=== PATIENT | female | born 1945 | race Hispanic/Latino ===

== ENCOUNTER 2017-03-14 11:48 | Observation (INO) | payer MEDICARE ==
[~2017-03-14] VITALS: Ht 147.3 cm; Wt 64.8 kg
[~2017-03-14 11:48] MED LIST: CYCLOBENZAPRINE10 MG PO; GABAPENTIN300 MG PO; LORTAB 5-325 MG1 TAB PO; PREDNISONE5 MG PO
[2017-03-14 12:45] LABS: HEMOGLOBIN 13.9 g/dl (12.0-16.0); IMMATURE GRANULOCYTES 0.9 % (0.0-1.0); MEAN CORPUSCULAR HGB CONC 32.3 g/L CALC (32.0-36.0); NEUT# 6.54 thou/uL (2.00-7.15); RED BLOOD COUNT 4.48 mill/uL (4.20-5.60); RED CELL DISTRI WIDTH 14.5 % (11.5-15.5)
[2017-03-14 13:04] LABS: ALBUMIN 3.9 g/dL (3.2-5.0); ALKALINE PHOSPHATASE 103 u/l (38-126); ANION GAP 16 (6-22 (CALC)); BILIRUBIN, TOTAL 0.3 mg/dL (0.0-1.4); BUN 15 mg/dL (8-23); BUN/CREATININE RATIO 16 (12-20 (CALC)); CALCIUM 9.8 mg/dL (8.4-10.2); CARBON DIOXIDE 22 mmol/l (22-30); CHLORIDE 107 mmol/l (95-108); CREATININE 0.9 mg/dL (0.5-1.0); GFR > 60 ML/MIN (>=60 (CALC)); GFR FOR AFR.AMER. > 60 ML/MIN (>=60 (CALC)); GLUCOSE 234 mg/dL (82-115); SGOT/AST 28 u/l (9-36); SGPT/ALT 44 u/l (11-66); SODIUM 140 mmol/l (137-146); TOTAL PROTEIN 6.6 g/dL (6.3-8.2)
[2017-03-14 13:09] LABS: POTASSIUM 5.4 mmol/l (3.5-5.1)
[2017-03-14 13:16] LABS: MYOGLOBIN 37 ng/mL (0 - 62)
[2017-03-14 16:03] VITALS: BP 164/75
[2017-03-14 16:25] VITALS: BP 126/68
[2017-03-14] MEDS ORDERED: METFORMIN500 M1 PO (17:21)
[2017-03-14] MEDS ORDERED: COREG12.5 MG PO (17:22)
[2017-03-14] MEDS ORDERED: ASPIRIN 81 LOW81 MG PO (17:23)
[2017-03-14] MEDS ORDERED: SPIRONOLACT25 MG PO (17:24)
[2017-03-14] MEDS ORDERED: SINEQUAN10 MG PO (17:25)
[2017-03-14] MEDS ORDERED: CYCLOBENZAPR10 MG PO (17:26)
[2017-03-14] MEDS ORDERED: VALSARTAN160 MG PO (17:26)
[2017-03-14] MEDS ORDERED: ADVAIR DISKU IN (17:27)
[2017-03-14 19:00] VITALS: BP 118/55
[2017-03-14 23:43] LABS: URINE BILIRUBIN - DIPSTICK NEGATIVE (NEGATIVE); URINE BLOOD DIPSTICK NEGATIVE (NEGATIVE); URINE COLOR YELLOW; URINE GLUCOSE - DIPSTICK NEGATIVE (NEGATIVE); URINE KETONE NEGATIVE (NEGATIVE); URINE LEUK ESTERASE SMALL (Negative); URINE NITRITE - DIPSTICK NEGATIVE (Negative); URINE PROTEIN - DIPSTICK NEGATIVE (NEG-TRACE); URINE UROBILINOGEN - DIPSTICK 0.2 E.U./dL (0.2)
[2017-03-15] LABS: URINE CLARITY CLEAR
[2017-03-15 00:01] LABS: URINE BACTERIA FEW hpf; URINE SQUAMOUS EPITHELIAL CELL FEW EPI/hpf (0-FEW)
[2017-03-15 00:05] VITALS: BP 93/55
[2017-03-15 04:10] VITALS: BP 120/53
[2017-03-15 06:52] LABS: HEMATOCRIT 40.3 % (37.0-47.0); HEMOGLOBIN 12.8 g/dl (12.0-16.0); MEAN CELL VOLUME 98.1 fL CALC (80.0-100.0); MEAN CORPUSCULAR HGB 31.1 pG CALC (26.0-32.0); MEAN CORPUSCULAR HGB CONC 31.8 g/L CALC (32.0-36.0); NEUT# 5.97 thou/uL (2.00-7.15); RED BLOOD COUNT 4.11 mill/uL (4.20-5.60); RED CELL DISTRI WIDTH 14.4 % (11.5-15.5)
[2017-03-15 08:05] LABS: ANION GAP 14 (6-22 (CALC)); BUN 17 mg/dL (8-23); BUN/CREATININE RATIO 18 (12-20 (CALC)); CALCIUM 9.7 mg/dL (8.4-10.2); CALCULATED LDLCHOLESTEROL 129 mg/dL (62-129 (CALC)); CARBON DIOXIDE 27 mmol/l (22-30); CHLORIDE 106 mmol/l (95-108); CHOLESTEROL HDL RATIO 3.2 (<4.4 (CALC)); GFR 55 ML/MIN (>=60 (CALC)); GFR FOR AFR.AMER. > 60 ML/MIN (>=60 (CALC)); GLUCOSE 111 mg/dL (82-115); HDL CHOLESTEROL 78 mg/dL (>=40); MAGNESIUM 1.7 mg/dL (1.6-2.3); SODIUM 142 mmol/l (137-146); TOTAL CHOLESTEROL 249 mg/dl (0-199); TOTAL TRIGLYCERIDES 205 mg/dl (30-149); VLDL CHOLESTROL 41 mg/dl (1-41 (CALC))
[2017-03-15 08:06] LABS: POTASSIUM 5.3 mmol/l (3.5-5.1)
[2017-03-15 08:35] VITALS: BP 129/72
[2017-03-15 12:00] VITALS: BP 118/64
[2017-03-15] MEDS ORDERED: LORTAB 5/3255 MG PO (14:54)
== END 2017-03-15 15:38 | disposition home or self-care (01) ==
LOC: ED 11:48 → ED-I 14:40 → ED 15:17 → MS2 15:18
PROVIDERS: Emergency Medicine; Internal Medicine; Nurse Practitioner Family; ADMIT Internal Medicine; ATTEND Internal Medicine
DX: R07.9 Chest pain, unspecified (principal); I11.0 Hypertensive heart disease with heart failure; I50.32 Chronic diastolic (congestive) heart failure; E11.9 Type 2 diabetes mellitus without complications; M06.9 Rheumatoid arthritis, unspecified; E87.5 Hyperkalemia; M79.605 Pain in left leg; M79.604 Pain in right leg; S80.12XA Contusion of left lower leg, initial encounter; S80.11XA Contusion of right lower leg, initial encounter; S40.022A Contusion of left upper arm, initial encounter; S40.021A Contusion of right upper arm, initial encounter; W22.8XXA Striking against or struck by other objects, initial encounter; R60.9 Edema, unspecified; R06.02 Shortness of breath; Z79.899 Other long term (current) drug therapy

== ENCOUNTER 2018-09-16 14:48 | Observation (INO) | payer MEDICARE ==
[~2018-09-16] VITALS: Ht 147.3 cm; Wt 67.1 kg
[~2018-09-16 14:48] MED LIST changes: +ADVAIR DISKU IN; +ASPIRIN 81 LOW81 MG PO; +COREG25 MG PO; +CYCLOBENZAPR10 MG PO; +LORTAB 5/3255 MG PO; +METFORMIN500 M1 PO; +SINEQUAN10 MG PO; +SPIRONOLACT25 MG PO; +VALSARTAN160 MG PO
[2018-09-16 16:00] LABS: HEMATOCRIT 34.7 % (37.0-47.0); IMMATURE GRANULOCYTES 0.5 % (0.0-5.0); MEAN CORPUSCULAR HGB 23.3 pG CALC (26.0-32.0); MEAN CORPUSCULAR HGB CONC 28.5 g/L CALC (32.0-36.0); NEUT# 7.2 thou/uL (2.00-7.15); RED BLOOD COUNT 4.24 mill/uL (4.20-5.60); RED CELL DISTRI WIDTH 15.7 % (11.5-15.5)
[2018-09-16 16:04] LABS: HEMOGLOBIN 9.9 g/dl (12.0-16.0); MEAN CELL VOLUME 81.8 fL CALC (80.0-100.0)
[2018-09-16 16:17] LABS: URINE BILIRUBIN - DIPSTICK NEGATIVE (NEGATIVE); URINE BLOOD DIPSTICK NEGATIVE (NEGATIVE); URINE COLOR YELLOW; URINE GLUCOSE - DIPSTICK 500 mg/dL (NEGATIVE); URINE KETONE NEGATIVE (NEGATIVE); URINE LEUK ESTERASE TRACE (NEGATIVE); URINE NITRITE - DIPSTICK NEGATIVE (Negative); URINE PROTEIN - DIPSTICK NEGATIVE (NEG-TRACE); URINE SPECIFIC GRAVITY 1.025; URINE UROBILINOGEN - DIPSTICK 0.2 E.U./dL (0.2)
[2018-09-16 16:21] LABS: ALBUMIN 3.2 g/dL (3.2-5.0); ALKALINE PHOSPHATASE 99 u/l (38-126); ANION GAP 12 (6-22 (CALC)); BILIRUBIN, TOTAL 0.4 mg/dL (0.0-1.4); BUN 26 mg/dL (8-23); BUN/CREATININE RATIO 18 (12-20 (CALC)); CARBON DIOXIDE 25 mmol/l (22-30); CHLORIDE 108 mmol/l (95-108); CREATININE 1.5 mg/dL (0.5-1.0); GFR 34 ML/MIN (>=60 (CALC)); GFR FOR AFR.AMER. 41 ML/MIN (>=60 (CALC)); SGOT/AST 25 u/l (9-36); SODIUM 141 mmol/l (137-146); TOTAL PROTEIN 5.7 g/dL (6.3-8.2)
[2018-09-16 16:24] LABS: POTASSIUM 4.1 mmol/l (3.5-5.1)
[2018-09-16] MEDS ORDERED: GABAPENTIN300 M2 PO (16:25)
[2018-09-16] MEDS ORDERED: LASIX 20 MG TAB20 MG PO (16:25)
[2018-09-16] MEDS ORDERED: LIPITOR20 M1 PO (16:26)
[2018-09-16] MEDS ORDERED: MAXZIDE-2537.5 MG/TA PO (16:26)
[2018-09-16] MEDS ORDERED: XARELTO10 MG PO (16:27)
[2018-09-16] MEDS ORDERED: JANUVIA100 MG PO (16:27)
[2018-09-16] MEDS ORDERED: XELJANZ5 MG PO (16:27)
[2018-09-16] MEDS ORDERED: D3 HIGH POT1000 UNIT PO (16:28)
[2018-09-16] MEDS ORDERED: PREDNISONE2.5 MG PO (16:29)
[2018-09-16 18:31] VITALS: BP 166/70
[2018-09-16 19:30] VITALS: BP 142/72
[2018-09-17 03:49] VITALS: BP 120/59
[2018-09-17 05:28] LABS: HEMATOCRIT 31.8 % (37.0-47.0); HEMOGLOBIN 9.2 g/dl (12.0-16.0); IMMATURE GRANULOCYTES 0.5 % (0.0-5.0); MEAN CORPUSCULAR HGB 23.7 pG CALC (26.0-32.0); MEAN CORPUSCULAR HGB CONC 28.9 g/L CALC (32.0-36.0); NEUT# 7.25 thou/uL (2.00-7.15); RED BLOOD COUNT 3.88 mill/uL (4.20-5.60); RED CELL DISTRI WIDTH 15.7 % (11.5-15.5)
[2018-09-17 05:46] LABS: ALKALINE PHOSPHATASE 97 u/l (38-126); AMYLASE 56 u/l (30-110); ANION GAP 11 (6-22 (CALC)); BUN 21 mg/dL (8-23); BUN/CREATININE RATIO 20 (12-20 (CALC)); CARBON DIOXIDE 26 mmol/l (22-30); CHLORIDE 107 mmol/l (95-108); GFR 55 ML/MIN (>=60 (CALC)); GFR FOR AFR.AMER. > 60 ML/MIN (>=60 (CALC)); LIPASE 189 u/l (23-300); MAGNESIUM 1.9 mg/dL (1.6-2.3); POTASSIUM 3.8 mmol/l (3.5-5.1); SGOT/AST 18 u/l (9-36); SODIUM 139 mmol/l (137-146); TOTAL PROTEIN 5.3 g/dL (6.3-8.2)
[2018-09-17 06:04] LABS: BILIRUBIN, TOTAL 0.2 mg/dL (0.0-1.4)
[2018-09-17 07:55] VITALS: BP 122/40
[2018-09-17 16:00] VITALS: BP 139/69
[2018-09-17 19:43] VITALS: BP 158/74
[2018-09-18 04:26] VITALS: BP 127/59
[2018-09-18 05:16] LABS: HEMATOCRIT 34.2 % (37.0-47.0); HEMOGLOBIN 9.8 g/dl (12.0-16.0); IMMATURE GRANULOCYTES 0.4 % (0.0-5.0); MEAN CORPUSCULAR HGB 23.5 pG CALC (26.0-32.0); MEAN CORPUSCULAR HGB CONC 28.7 g/L CALC (32.0-36.0); NEUT# 8.26 thou/uL (2.00-7.15); RED BLOOD COUNT 4.17 mill/uL (4.20-5.60); RED CELL DISTRI WIDTH 15.9 % (11.5-15.5)
[2018-09-18 05:45] LABS: ALBUMIN 3.1 g/dL (3.2-5.0); BILIRUBIN, TOTAL 0.3 mg/dL (0.0-1.4); CREATININE 1.1 mg/dL (0.5-1.0); MAGNESIUM 1.9 mg/dL (1.6-2.3); POTASSIUM 4.1 mmol/l (3.5-5.1); TOTAL PROTEIN 5.4 g/dL (6.3-8.2)
[2018-09-18 08:00] VITALS: BP 133/60
[2018-09-18 08:03] VITALS: BP 133/60
[2018-09-18] MEDS ORDERED: BUMETANIDE1 MG PO (13:50)
== END 2018-09-18 14:29 | disposition home or self-care (01) ==
LOC: ED 14:48 → ED-I 17:19 → ED 17:48 → MS2 17:49
PROVIDERS: Emergency Medicine; ADMIT Internal Medicine Nephrology; ATTEND Internal Medicine Nephrology
DX: I11.0 Hypertensive heart disease with heart failure (principal); I50.32 Chronic diastolic (congestive) heart failure; E11.9 Type 2 diabetes mellitus without complications; M06.9 Rheumatoid arthritis, unspecified; E66.9 Obesity, unspecified; R58 Hemorrhage, not elsewhere classified; T45.515A Adverse effect of anticoagulants, initial encounter; E55.9 Vitamin D deficiency, unspecified; E78.5 Hyperlipidemia, unspecified; Z86.718 Personal history of other venous thrombosis and embolism; Z79.01 Long term (current) use of anticoagulants; Z98.84 Bariatric surgery status; M79.89 Other specified soft tissue disorders; M79.605 Pain in left leg; M79.604 Pain in right leg

== ENCOUNTER 2018-11-06 13:39 | Observation (INO) | payer MEDICARE ==
[~2018-11-06] VITALS: Ht 147.3 cm; Wt 65.8 kg
[~2018-11-06 13:39] MED LIST changes: +BUMETANIDE1 MG PO; +D3 HIGH POT1000 UNIT PO; +GABAPENTIN300 M2 PO; +JANUVIA100 MG PO; +LASIX 20 MG TAB20 MG PO; +LIPITOR20 M1 PO; +MAXZIDE-2537.5 MG/TA PO; +PREDNISONE2.5 MG PO; +XARELTO10 MG PO; +XELJANZ5 MG PO
--- NOTE | 2018-11-06 13:58 | NUR ---
WHEELCHAIR TO ER ROOM 9, TO BED
--- NOTE | 2018-11-06 14:30 | NUR ---
NITRO SL ON HOLD DUE TO LOW BLOOD PRESSURE. INFORMED.
--- NOTE | 2018-11-06 14:30 | NUR ---
PATIENT DENIES ANY CHEST PAIN.
[2018-11-06 14:37] LABS: HEMATOCRIT 33.4 % (37.0-47.0); HEMOGLOBIN 9.3 g/dl (12.0-16.0); IMMATURE GRANULOCYTES 0.4 % (0.0-5.0); MEAN CELL VOLUME 77.7 fL CALC (80.0-100.0); MEAN CORPUSCULAR HGB 21.6 pG CALC (26.0-32.0); MEAN CORPUSCULAR HGB CONC 27.8 g/L CALC (32.0-36.0); NEUT# 6.57 thou/uL (2.00-7.15); RED BLOOD COUNT 4.3 mill/uL (4.20-5.60); RED CELL DISTRI WIDTH 17.2 % (11.5-15.5)
[2018-11-06 14:51] LABS: ANION GAP 10 (6-22 (CALC)); BUN 16 mg/dL (8-23); BUN/CREATININE RATIO 13 (12-20 (CALC)); CARBON DIOXIDE 26 mmol/l (22-30); CHLORIDE 107 mmol/l (95-108); CREATININE 1.2 mg/dL (0.5-1.0); GFR 44 ML/MIN (>=60 (CALC)); GFR FOR AFR.AMER. 54 ML/MIN (>=60 (CALC)); POTASSIUM 4.3 mmol/l (3.5-5.1); SODIUM 138 mmol/l (137-146)
--- NOTE | 2018-11-06 15:09 | NUR ---
AT BEDSIDE TO DISCUSS RESULTS AND PLAN OF CARE.
--- NOTE | 2018-11-06 15:14 | NUR ---
SBAR PRINTED TO FLOOR
[2018-11-06] MEDS ORDERED: DIOVAN80 MG PO (15:22)
--- NOTE | 2018-11-06 15:25 | NUR ---
PATIENT MEDICATED WITH 40 MG OF LASIX IV. MED REC COMPLETED WITH PATIENT. INFORMED TO CALL FOR ASSISTANCE. DAUGHTER AT BEDSIDE, WILL CONTINUE TO MONITOR.
[2018-11-06 15:31] LABS: ALBUMIN 3.4 g/dL (3.2-5.0); BILIRUBIN, TOTAL 0.3 mg/dL (0.0-1.4); TOTAL PROTEIN 6.2 g/dL (6.3-8.2)
--- NOTE | 2018-11-06 16:10 | NUR ---
PATIENT AMBULATES TO AND FROM BATHROOM WITH STEADY GAIT. STANDBY ASSIST ONLY.
--- NOTE | 2018-11-06 16:50 | NUR ---
PATIENT TRANSPORTED TO [facility] VIA WHEELCHAIR WITH TELE IN PLACE. BEDSIDE REPORT GIVEN TO MAURY MCGEE. CARE RELINQUISHED.
--- NOTE | 2018-11-06 16:53 | NUR ---
PT ARRIVED TO MED/SURG ROOM 272 IN STABLE CONDITION ACCOMPANIED BY NIC GREEN;PT AMBULATED TO STANDING SCALE AND BEDSIDE WITH WEAK GAIT AND ONE PERSON ASSIST;WT AND VS OBTAINED BY AYAKA ALFREDO;REPORT THEN RECEIVED FROM NIC GREEN AT BEDSIDE;PT REPORTS INCREASED BLE EDEMA X2 DAYS SUPERVISOR STAGE CARPENTRY ASSOCIATED WITH SOB AND CHEST PRESSURE;PT REPORTS PAIN HAS DECREASED AFTER PAIN MEDICATION ADMINISTRATION IN THE ER, PAIN SCALE AND REPORTING EDUCATED;ASSESSMENT COMPLETED;RESPIRATIONS EVEN AND UNLABORED ON RA, CLEAR/DIMINISHED LUNG SOUNDS NOTED;ABDOMEN DISTENDED/SOFT ON PALPATION AND ACTIVE IN ALL 4 QUADRANTS, LAST BM 11/06/18;STRONG PEDAL PULSES WITH +2 EDEMA NOTED, ENCOURAGED ELEVATION OF BLE;SKIN INTACT;TELE MONITORING IN PLACE;#20G TO RIGHT FOREARM FLUSHED AND PATENT,SITE APPEARS HEALTHY;ACCUCHECK 178;PT DENIES ANY ADDITIONAL NEEDS AT THIS TIME AND IS ENCOURAGED TO CALL FOR ASSISTANCE IF NEEDED;FALL PRECAUTIONS IN PLACE WITH BED IN THE LOWEST POSITION AND CALL LIGHT IN REACH;WILL CONTINUE TO MONITOR
[2018-11-06 17:00] VITALS: BP 144/58
[2018-11-06 19:29] VITALS: BP 122/58
--- NOTE | 2018-11-06 22:26 | NUR ---
PT MEDICATED FOR PAIN /10 IN BLE. PT ASSESSED, LUNG SOUNDS ARE CLEAR THROUGHOUT, BUT PT REPORTS PAIN IN MID BACK UPON DEEP BREATHING AND FINDS IT VERY DIFFICULT TO DEEP BREATH. 1+EDEMA TO BLE, PT REPORTS PAIN IN LEGS AND FEET. ABD FIRM/DISTENDED TENDER TO PALPATE W/HYPOACTIVE BOWEL SOUNDS TO LLQ. PT LOCX3. POC DISCUSSED/PT EXPRESSES UNDERSTANDING. PT ENCOURAGED TO CALL IF SHE NEEDS TO AMBULATE TO RESTROOM OR HAS ANY OTHER NEEDS ARISE.
[2018-11-06 23:15] VITALS: BP 115/62
--- NOTE | 2018-11-06 23:25 | NUR ---
PT REPORTS PAIN IS IMPROVING, BUT THAT SHE FEELS LIKE SHE HAS PHLEGM IN HER THROAT AND CANNOT CLEAR IT. SHE REPORTS THAT SHE HAS HAD THIS FEELING FOR WEEKS NOW AND IT IS JUST WORSENING. SHE STATES THAT SHE HAS TO PROP UP USING PILLOWS WHEN SHE SLEEPS. WILL CONTINUE TO MONITOR.
[2018-11-07 02:10] LABS: HEMATOCRIT 32.4 % (37.0-47.0); MEAN CELL VOLUME 77.9 fL CALC (80.0-100.0); MEAN CORPUSCULAR HGB 21.6 pG CALC (26.0-32.0); MEAN CORPUSCULAR HGB CONC 27.8 g/L CALC (32.0-36.0); RED BLOOD COUNT 4.16 mill/uL (4.20-5.60); RED CELL DISTRI WIDTH 17.2 % (11.5-15.5)
[2018-11-07 02:31] LABS: CHOLESTEROL HDL RATIO 2.6 (<4.4 (CALC)); CREATININE 1.3 mg/dL (0.5-1.0); POTASSIUM 4.9 mmol/l (3.5-5.1)
[2018-11-07 04:00] VITALS: BP 132/62
--- NOTE | 2018-11-07 05:24 | NUR ---
PT SLEEPING, NO S/O DISTRESS, CALL LIGHT AT BEDSIDE. AWOKE TO MY VOICE/DENIED ANY NEEDS.
[2018-11-07 07:50] VITALS: BP 149/57
--- NOTE | 2018-11-07 07:50 | NUR ---
ASSESSMENT IS COMPLETED: IV SITE IS FREE FROM REDNESS OR EDEMA. HR IS REG,PULSES ARE STRONG X4, ABD IS SOFT WITH ACTIVE BS. BREATH SOUNDS ARE CLEAR, BILATERALLY. +2 PITTING EDEMA NOTED ON FEET AND PAINFUL TO WALK, C/O LOWER BACK HURTING. CONTINUE TO OSBERVE AND MONITOR
[2018-11-07 08:19] LABS: URINE BILIRUBIN - DIPSTICK NEGATIVE (NEGATIVE); URINE BLOOD DIPSTICK NEGATIVE (NEGATIVE); URINE COLOR YELLOW; URINE GLUCOSE - DIPSTICK NEGATIVE (NEGATIVE); URINE KETONE NEGATIVE (NEGATIVE); URINE LEUK ESTERASE TRACE (Negative); URINE NITRITE - DIPSTICK NEGATIVE (Negative); URINE PROTEIN - DIPSTICK NEGATIVE (NEG-TRACE); URINE UROBILINOGEN - DIPSTICK 0.2 E.U./dL (0.2)
[2018-11-07 08:22] LABS: URINE CLARITY CLEAR
[2018-11-07 10:35] VITALS: BP 117/55
--- NOTE | 2018-11-07 10:44 | NUR ---
PT INQUIRING ABOUT PAIN MEDICATION TOO SOON.
--- NOTE | 2018-11-07 12:00 | NUR ---
PT IS RELAXING IN BED WITH NO DISTRESS NOTED. IV SITE IS FREE FROM REDNESS OR EDMEA.
[2018-11-07 12:05] LABS: C-REACTIVE PROTEIN 0.9 mg/dL (0-0.9)
[2018-11-07 14:46] VITALS: BP 130/65
--- NOTE | 2018-11-07 16:00 | NUR ---
PT HAS BEEN VISITING WITH FAMILY.NO DISTRESS NOTED. IV SITE IS FREE FROM REDNESS OR EDEMA.
--- NOTE | 2018-11-07 19:00 | NUR ---
REPORT RECEIVED FROM MAURY ROWLEY. PT RESTING IN BED. NO S/S OF DISTRESS AT THIS TIME. CALL SCOTT WITHIN REACH, WILL CONTINUE TO MONITOR.
[2018-11-07 20:39] VITALS: BP 120/76
--- NOTE | 2018-11-07 21:30 | NUR ---
PT RESTING IN BED. ALERT AND ORIENTED. RESPIRATIONS EVEN AND UNLABORED ON RA. LUNGS SOUND CLEAR/DIMINISHED. PEDAL PULSES ARE WEAK. 1+ EDEMA NOTED BILATERALLY TO THE FEET. PT REPORTS PAIN OF A 8/10 HER FEET, PT TO BE MEDICATED PER EMAR ORDERS. CALL SCOTT WITHIN REACH, WILL CONTINUE TO MONITOR.
[2018-11-08 00:23] VITALS: BP 127/71
--- NOTE | 2018-11-08 00:29 | NUR ---
PT RESTING IN BED. TELE IN PLACE. NO S/S OF DISTRESS AT THIS TIME. SAFETY PRECAUTIONS IN PLACE. WILL CONTINUE TO MONITOR.
--- NOTE | 2018-11-08 04:15 | NUR ---
PT RESTING IN BED. TELE IN PLACE. RESPIRATIONS EVEN AND UNLABORED ON RA. SAFETY PRECAUTIONS IN PLACE. WILL CONTINUE TO MONITOR.
[2018-11-08 04:24] VITALS: BP 140/56
--- NOTE | 2018-11-08 06:55 | NUR ---
PT REPORT RECIEVED FROM NIC FITZPATRICK. PT WATCHING TELEVISION. NO S/S OF DISTRESS. CALL LIGHT IN REACH. WILL CONTINUE TO MONITOR.
[2018-11-08 07:38] VITALS: BP 120/79
--- NOTE | 2018-11-08 07:38 | NUR ---
PT A/O X3. RESP EVEN AND UNLABORED. LUNG SOUNDS CLEAR. TELE IN PLACE. BOWEL SOUNDS ACTIVE. STRONG RADIAL/PEDAL PUKSES. #20 RFA IV REMOVED DUE TO LEAKING. #22 RFA IV STARTED BY COMPETENCY EVALUATED NURSE AIDE. FLUSHED AND PATENT; SITE HAPPEARS HEALTHY. SKIN INTACT. PT C/O ACHING BACK PAIN; 7 OUT OF 10 ON PAIN SCALE. MEDICATED W/ ONE LORTAB 5/325 PO. REPOSITIONED FOR COMFORT. PT DENIES ANY FURTHER NEEDS. POC DISCUSSED. SAFETY PRECAUTIONS IN PLACE. CALL LIGHT IN REACH. WILL CONTINUE TO MONITOR.
[2018-11-08 11:10] VITALS: BP 100/50
[2018-11-08] MEDS ORDERED: JANUVIA50 MG PO (11:16)
[2018-11-08] MEDS ORDERED: PROTONIX40 M2 PO (11:33)
--- NOTE | 2018-11-08 11:59 | NUR ---
PT WATCHING TELEVISION; DAUGHTER AT BEDSIDE. CALL LIGHT IN REACH. WILL CONTINUE TO MONITOR.
--- NOTE | 2018-11-08 13:20 | NUR ---
D/C INSTRUCTIONS DISCUSSED W/ PT. PT STATES UNDERSTANG. IV REMOVED; CATHETER INTACT. PT GETTING DRESSED. DAUGHTER AT BEDSIDE.
--- NOTE | 2018-11-08 13:28 | NUR ---
Discharge instructions given. Patient verbalizes understanding of same. Discharged in stable condition via Wheelchair to Home with family. All belongings sent with pt.
== END 2018-11-08 13:30 | disposition home or self-care (01) ==
LOC: ED 13:39 → ED-I 14:14 → ED 15:42 → MS2 15:43
PROVIDERS: Family Medicine; ADMIT Internal Medicine; ATTEND Internal Medicine
DX: I11.0 Hypertensive heart disease with heart failure (principal); I50.33 Acute on chronic diastolic (congestive) heart failure; D50.9 Iron deficiency anemia, unspecified; E11.9 Type 2 diabetes mellitus without complications; K59.09 Other constipation; E78.5 Hyperlipidemia, unspecified; M06.9 Rheumatoid arthritis, unspecified; Z79.84 Long term (current) use of oral hypoglycemic drugs; Z86.718 Personal history of other venous thrombosis and embolism; Z79.01 Long term (current) use of anticoagulants; Z98.84 Bariatric surgery status
CPT/HCPCS: J1756

== ENCOUNTER 2018-12-29 11:18 | Observation (INO) | payer MEDICARE ==
[~2018-12-29] VITALS: Ht 147.3 cm; Wt 65.0 kg
[~2018-12-29 11:18] MED LIST changes: +DIOVAN80 MG PO; +JANUVIA50 MG PO; +Levaquin PO; +PROTONIX40 M2 PO
--- NOTE | 2018-12-29 11:37 | NUR ---
PATIENT TO ROOM VIA WHEELCHAIR AND PHYSICIAN NOTIFIED OF PATIENT STATUS
--- NOTE | 2018-12-29 11:40 | NUR ---
PT WITH COMPLAINS OF GENERALIZED WEAKNESS BILATE LOWER EXTREMITY SWELLING. WAS ADMITTED HERE A WEEK AGO. DAUGHTER AT BEDSIDE
[2018-12-29 12:12] LABS: CREATININE 1.3 mg/dL (0.5-1.0); POTASSIUM 4.4 mmol/l (3.5-5.1)
--- NOTE | 2018-12-29 12:12 | NUR ---
PT MEDICATED LIGHTS DIMMED CALL LIGHT IN REACH
[2018-12-29 12:23] LABS: HEMATOCRIT 43.5 % (37.0-47.0); HEMOGLOBIN 13.1 g/dl (12.0-16.0); IMMATURE GRANULOCYTES 0.5 % (0.0-5.0); MEAN CORPUSCULAR HGB 26.2 pG CALC (26.0-32.0); MEAN CORPUSCULAR HGB CONC 30.1 g/L CALC (32.0-36.0); NEUT# 7.15 thou/uL (2.00-7.15); RED CELL DISTRI WIDTH 23.3 % (11.5-15.5)
--- NOTE | 2018-12-29 12:25 | NUR ---
REPORT RECEIVED FROM NIC HILLIARD.
--- NOTE | 2018-12-29 13:24 | NUR ---
PATIENT RESTING ON STRETCHER, NO SIGNS OF DISTRESS NOTED. VSS. CALL LIGHT WITHIN REACH. WAITING ON RESULTS. DAUGHTER AT BEDSIDE. WILL CONTINUE TO MONITOR.
--- NOTE | 2018-12-29 14:38 | NUR ---
TWO SKIN TEARS NOTED TO RIGHT KNEE 2 CM AND 3 CM. 1 CM SLIN TEAR TO RIGHT ELBOW. CLEANED WITH SALINE AND DRESSING APPLIED. TOLERATED WELL.
--- NOTE | 2018-12-29 14:43 | NUR ---
ATTEMPT MADE TO CALL REPORT, SPOKE TO YAMILET. NURSE PATEL WILL CALL BACK.
--- NOTE | 2018-12-29 15:10 | NUR ---
REPORT GIVEN TO NIC PATEL.
--- NOTE | 2018-12-29 15:15 | NUR ---
PATIENT TRANSPORTED TO [facility] VIA STRETCHER WITH TELE IN PLACE. NIC PATEL AT BEDSIDE. CARE RELINQUISHED.
[2018-12-29 15:17] VITALS: BP 131/68
[2018-12-29] MEDS ORDERED: LORTAB 5/3255 MG PO (16:27)
[2018-12-29] MEDS ORDERED: JANUVIA100 MG PO (17:12)
[2018-12-29] MEDS ORDERED: DIOVAN80 MG PO (17:12)
[2018-12-29 18:46] VITALS: BP 135/59
--- NOTE | 2018-12-29 19:00 | NUR ---
RECEIVED REPORT FROM NURSE PATEL, PATIENT RESTING IN BED, WATCHING TV, CALL LIGHT WITHIN REACH.
--- NOTE | 2018-12-29 20:34 | NUR ---
CALLED DR. CASTILLO ABOUT PATIENT REQUEST TO RESTART DOXEPIN WITH ORDERS MADE.
--- NOTE | 2018-12-29 21:00 | NUR ---
PATIENT ALERT AND ORIENTED WITH SALINE LOCK ON LAC G20 PATENT FLUSHES WELL REMAINS ON TELE SR 64, C/O GENERALIZED BODY PAIN PRN PAIN MEDICATION GIVEN WAS EFFECTIVE, BS 94, SNACK GIVEN, NOTED TO HAVE SKIN TEAR ON RT LEG, CLEANED AND APPLIED DRY DRESSING, REINFORCED ON THE NEED TO ASK FOR ASSISTANCE DURING AMBULATIONS.CALL LIGHT WITHIN REACH.
[2018-12-29 23:46] VITALS: BP 154/65
--- NOTE | 2018-12-29 23:47 | NUR ---
PATIENT C/O OF HEADACHE PS 09/24, REQUESTED TYLENOL.
--- NOTE | 2018-12-30 03:59 | NUR ---
PATIENT APPEARS TO BE RESTING WITH EYES CLOSED WITH EVEN UNLABORED BREATHING NO DISCOMFORTS NOTED AT THIS TIME.
[2018-12-30 04:14] VITALS: BP 128/56
[2018-12-30 08:00] VITALS: BP 121/65
--- NOTE | 2018-12-30 08:00 | NUR ---
PT AWAKE, ALERT, ORIENTED X 3. PT IS SORE FROM HAVING FALLEN YESTERDAY, PROVIDED MEDS ORDERED FOR PAIN RELIEF. NO CHANGE IN VISION, NO SIGNIFICANT HEADACHE. LUNGS CLEAR, RA.
--- NOTE | 2018-12-30 10:32 | NUR ---
PATIENT REPORTED PAIN OF (PS 8/10), BUT COOPERATIVE AND WILLING TO DO THERAPY. PERFORMED GAIT TRAINING USING 2WW, 30 FEET, CGA FOR SAFETY. PATIENT PRESENTED ANTALGIC GAIT, DECREAED GAT SPEED, AND DECREASED STEP LENGTH AND STRIDE. PATIENT PERFORMED BED MOBILITY (SUPINE <> SIT), SUPERVISION, ABLE TO DEMONSTRATE GOOD SEQUENCING AND SAEFTY AWARENESS.
[2018-12-30 10:35] LABS: HEMATOCRIT 38.9 % (37.0-47.0); HEMOGLOBIN 11.8 g/dl (12.0-16.0); IMMATURE GRANULOCYTES 0.3 % (0.0-5.0); MEAN CELL VOLUME 87.2 fL CALC (80.0-100.0); MEAN CORPUSCULAR HGB 26.5 pG CALC (26.0-32.0); MEAN CORPUSCULAR HGB CONC 30.3 g/L CALC (32.0-36.0); NEUT# 4.69 thou/uL (2.00-7.15); RED BLOOD COUNT 4.46 mill/uL (4.20-5.60); RED CELL DISTRI WIDTH 22.9 % (11.5-15.5)
[2018-12-30 10:51] LABS: CREATININE 1.1 mg/dL (0.5-1.0); MAGNESIUM 1.8 mg/dL (1.6-2.3)
[2018-12-30 11:27] VITALS: BP 81/43
--- NOTE | 2018-12-30 12:00 | NUR ---
PT HAS BEEN AMBULATED IN HALLWAY BY PHYSICAL THERAPY. PT CONTINUES WITH GENERALIZED PAIN, MEDICATED FOR SAME. DAUGHTER AT BEDSIDE.
[2018-12-30] MEDS ORDERED: LORTAB 5/3255 MG PO (13:27)
[2018-12-30 13:38] VITALS: BP 148/79
--- NOTE | 2018-12-30 14:10 | NUR ---
PT HAS BEEN DISCHARGED TO HOME. PT AND DAUGHTER VERBALIZE UNDERSTANDING OF DC INSTRUCTIONS, PT TAKEN TO LOBBY VIA WHEELCHAIR.
== END 2018-12-30 14:06 ==
LOC: ED 11:18 → ED-I 13:40 → ED 13:58 → MS2 13:59
PROVIDERS: Family Medicine; Nurse Practitioner Family; ADMIT Internal Medicine; ATTEND Internal Medicine
DX: S09.90XA Unspecified injury of head, initial encounter (principal); S80.12XA Contusion of left lower leg, initial encounter; S81.011A Laceration without foreign body, right knee, initial encounter; S51.011A Laceration without foreign body of right elbow, initial encounter; I11.0 Hypertensive heart disease with heart failure; I50.32 Chronic diastolic (congestive) heart failure; E11.9 Type 2 diabetes mellitus without complications; M06.9 Rheumatoid arthritis, unspecified; W19.XXXA Unspecified fall, initial encounter; Y92.009 Unspecified place in unspecified non-institutional (private) residence as the place of occurrence of the external cause; Z91.81 History of falling; Z79.84 Long term (current) use of oral hypoglycemic drugs; Z86.718 Personal history of other venous thrombosis and embolism; Z79.01 Long term (current) use of anticoagulants

== ENCOUNTER 2019-02-07 14:13 | Emergency (ER) | payer MEDICARE ==
[~2019-02-07] VITALS: Ht 147.3 cm; Wt 60.0 kg
[2019-02-07 15:04] LABS: HEMATOCRIT 42.6 % (37.0-47.0); HEMOGLOBIN 13.4 g/dl (12.0-16.0); IMMATURE GRANULOCYTES 0.4 % (0.0-5.0); MEAN CELL VOLUME 90.1 fL CALC (80.0-100.0); MEAN CORPUSCULAR HGB 28.3 pG CALC (26.0-32.0); MEAN CORPUSCULAR HGB CONC 31.5 g/L CALC (32.0-36.0); NEUT# 5.53 thou/uL (2.00-7.15); RED BLOOD COUNT 4.73 mill/uL (4.20-5.60); RED CELL DISTRI WIDTH 16.8 % (11.5-15.5)
[2019-02-07 15:36] LABS: ALBUMIN 3.7 g/dL (3.2-5.0); ALKALINE PHOSPHATASE 122 u/l (38-126); ANION GAP 14 (6-22 (CALC)); BILIRUBIN, TOTAL 0.7 mg/dL (0.0-1.4); BUN 13 mg/dL (8-23); BUN/CREATININE RATIO 13 (12-20 (CALC)); CARBON DIOXIDE 20 mmol/l (22-30); CHLORIDE 107 mmol/l (95-108); GFR 55 ML/MIN (>=60 (CALC)); GFR FOR AFR.AMER. > 60 ML/MIN (>=60 (CALC)); SGOT/AST 40 u/l (9-36); SODIUM 136 mmol/l (137-146); TOTAL PROTEIN 6.8 g/dL (6.3-8.2)
[2019-02-07 15:41] LABS: URINE BILIRUBIN - DIPSTICK NEGATIVE (NEGATIVE); URINE BLOOD DIPSTICK NEGATIVE (NEGATIVE); URINE COLOR YELLOW; URINE GLUCOSE - DIPSTICK NEGATIVE (NEGATIVE); URINE KETONE NEGATIVE (NEGATIVE); URINE LEUK ESTERASE NEGATIVE (NEGATIVE); URINE NITRITE - DIPSTICK NEGATIVE (Negative); URINE PROTEIN - DIPSTICK NEGATIVE (NEG-TRACE); URINE SPECIFIC GRAVITY 1.025; URINE UROBILINOGEN - DIPSTICK 0.2 E.U./dL (0.2)
[2019-02-07] MEDS ORDERED: LEVAQUIN500 MG PO (16:10)
[2019-02-07 16:40] VITALS: BP 153/80
== END 2019-02-07 17:01 | disposition home or self-care (01) ==
LOC: ED 14:13
DX: J40 Bronchitis, not specified as acute or chronic (principal); R19.7 Diarrhea, unspecified; J45.909 Unspecified asthma, uncomplicated

== ENCOUNTER 2019-02-18 15:02 | Emergency (ER) | payer MEDICARE ==
[~2019-02-18] VITALS: Ht 147.3 cm; Wt 64.0 kg
[~2019-02-18 15:02] MED LIST changes: +LEVAQUIN500 MG PO
[2019-02-18 17:33] LABS: HEMATOCRIT 37.6 % (37.0-47.0); HEMOGLOBIN 11.9 g/dl (12.0-16.0); MEAN CELL VOLUME 90.4 fL CALC (80.0-100.0); MEAN CORPUSCULAR HGB 28.6 pG CALC (26.0-32.0); MEAN CORPUSCULAR HGB CONC 31.6 g/L CALC (32.0-36.0); NEUT# 5.55 thou/uL (2.00-7.15); RED BLOOD COUNT 4.16 mill/uL (4.20-5.60)
[2019-02-18 17:51] LABS: ALBUMIN 3.2 g/dL (3.2-5.0); CREATININE 1.2 mg/dL (0.5-1.0); POTASSIUM 4.7 mmol/l (3.5-5.1); TOTAL PROTEIN 5.8 g/dL (6.3-8.2)
[2019-02-18 17:54] LABS: BILIRUBIN, TOTAL 0.3 mg/dL (0.0-1.4)
[2019-02-18 18:30] VITALS: BP 158/58
[2019-02-18] MEDS ORDERED: ULTRAM50 M1 PO (18:34)
[2019-02-18] MEDS ORDERED: CEPHALEXIN500 MG PO (18:34)
== END 2019-02-18 18:42 | disposition home or self-care (01) ==
LOC: ED 15:02
PROVIDERS: Emergency Medicine
DX: M79.89 Other specified soft tissue disorders (principal); I11.0 Hypertensive heart disease with heart failure; I50.9 Heart failure, unspecified; E11.9 Type 2 diabetes mellitus without complications; Z95.820 Peripheral vascular angioplasty status with implants and grafts

== ENCOUNTER 2019-11-27 16:47 | Inpatient (IN) | payer MEDICARE ==
[~2019-11-27] VITALS: Ht 147.3 cm; Wt 63.8 kg
[~2019-11-27 16:47] MED LIST changes: +CEPHALEXIN500 MG PO; +ULTRAM50 M1 PO
[2019-11-27 17:57] LABS: HEMATOCRIT 39.9 % (37.0-47.0); HEMOGLOBIN 11.5 g/dl (12.0-16.0); IMMATURE GRANULOCYTES 0.4 % (0.0-5.0); MEAN CELL VOLUME 95.7 fL CALC (80.0-100.0); MEAN CORPUSCULAR HGB 27.6 pG CALC (26.0-32.0); MEAN CORPUSCULAR HGB CONC 28.8 g/dL CAL (32.0-36.0); NEUT# 3.56 thou/uL (2.00-7.15); RED BLOOD COUNT 4.17 mill/uL (4.20-5.60); RED CELL DISTRI WIDTH 13.2 % (11.5-15.5)
[2019-11-27 18:25] LABS: ALBUMIN 3.7 g/dL (3.2-5.0); ALKALINE PHOSPHATASE 96 u/l (38-126); ANION GAP 13 (6-22 (CALC)); BILIRUBIN, TOTAL 0.3 mg/dL (0.0-1.4); BUN 22 mg/dL (8-23); BUN/CREATININE RATIO 18 (12-20 (CALC)); CARBON DIOXIDE 21 mmol/l (22-30); CHLORIDE 109 mmol/l (95-108); CREATININE 1.2 mg/dL (0.5-1.0); GFR 44 ML/MIN (>=60 (CALC)); GFR FOR AFR.AMER. 53 ML/MIN (>=60 (CALC)); POTASSIUM 5.1 mmol/l (3.5-5.1); SODIUM 137 mmol/l (137-146); TOTAL PROTEIN 6.2 g/dL (6.3-8.2)
[2019-11-27 18:37] LABS: SGOT/AST 37 u/l (9-36)
[2019-11-27] MEDS ORDERED: BENICAR5 MG PO (19:24)
[2019-11-27] MEDS ORDERED: METFORMIN500 M2 PO (19:25)
[2019-11-27] MEDS ORDERED: GABAPENTIN100 MG PO (19:26)
[2019-11-27 20:22] VITALS: BP 107/57
[2019-11-28] VITALS (101 sets, daily range): BP systolic 64–159; BP diastolic 35–94
[2019-11-28 08:05] LABS: CREATININE 1.1 mg/dL (0.5-1.0); POTASSIUM 5.6 mmol/l (3.5-5.1)
[2019-11-29] VITALS (46 sets, daily range): BP systolic 76–160; BP diastolic 41–100
[2019-11-29 09:15] LABS: CREATININE 1.4 mg/dL (0.5-1.0)
[2019-11-29 09:18] LABS: POTASSIUM 5.4 mmol/l (3.5-5.1)
[2019-11-30] VITALS (28 sets, daily range): BP systolic 100–156; BP diastolic 45–92
[2019-11-30 04:41] LABS: HEMOGLOBIN 10.1 g/dl (12.0-16.0); MEAN CELL VOLUME 91.5 fL CALC (80.0-100.0); MEAN CORPUSCULAR HGB 27.7 pG CALC (26.0-32.0); MEAN CORPUSCULAR HGB CONC 30.2 g/dL CAL (32.0-36.0); RED BLOOD COUNT 3.65 mill/uL (4.20-5.60); RED CELL DISTRI WIDTH 12.9 % (11.5-15.5)
[2019-11-30 04:43] LABS: HEMATOCRIT 33.4 % (37.0-47.0)
[2019-11-30 05:13] LABS: BUN 22 mg/dL (8-23); BUN/CREATININE RATIO 22 (12-20 (CALC)); CARBON DIOXIDE 24 mmol/l (22-30); CHLORIDE 106 mmol/l (95-108); GFR 55 ML/MIN (>=60 (CALC)); GFR FOR AFR.AMER. > 60 ML/MIN (>=60 (CALC)); SODIUM 133 mmol/l (137-146)
[2019-11-30 05:36] LABS: ANION GAP 8 (6-22 (CALC))
[2019-11-30 05:37] LABS: POTASSIUM 5.4 mmol/l (3.5-5.1)
[2019-12-01] VITALS: BP 113/55
[2019-12-01 03:50] VITALS: BP 119/64
[2019-12-01 08:00] VITALS: BP 124/38
[2019-12-01 09:11] LABS: HEMATOCRIT 29.7 % (37.0-47.0); MEAN CELL VOLUME 91.4 fL CALC (80.0-100.0); MEAN CORPUSCULAR HGB 27.7 pG CALC (26.0-32.0); MEAN CORPUSCULAR HGB CONC 30.3 g/dL CAL (32.0-36.0); RED BLOOD COUNT 3.25 mill/uL (4.20-5.60); RED CELL DISTRI WIDTH 13.1 % (11.5-15.5)
[2019-12-01 09:38] LABS: CREATININE 1.2 mg/dL (0.5-1.0); POTASSIUM 3.7 mmol/l (3.5-5.1)
[2019-12-01 11:00] VITALS: BP 97/53
[2019-12-01 15:00] VITALS: BP 128/64
[2019-12-01 18:56] VITALS: BP 134/77
[2019-12-02 00:22] VITALS: BP 132/58
[2019-12-02 03:18] LABS: HEMATOCRIT 31.6 % (37.0-47.0); HEMOGLOBIN 9.5 g/dl (12.0-16.0); IMMATURE GRANULOCYTES 0.4 % (0.0-5.0); MEAN CELL VOLUME 91.6 fL CALC (80.0-100.0); MEAN CORPUSCULAR HGB 27.5 pG CALC (26.0-32.0); MEAN CORPUSCULAR HGB CONC 30.1 g/dL CAL (32.0-36.0); NEUT# 4.36 thou/uL (2.00-7.15); RED BLOOD COUNT 3.45 mill/uL (4.20-5.60); RED CELL DISTRI WIDTH 13.1 % (11.5-15.5)
[2019-12-02 03:37] LABS: BILIRUBIN, TOTAL 0.2 mg/dL (0.0-1.4); CREATININE 1.1 mg/dL (0.5-1.0)
[2019-12-02 03:38] LABS: ALBUMIN 2.8 g/dL (3.2-5.0); TOTAL PROTEIN 4.9 g/dL (6.3-8.2)
[2019-12-02 05:00] VITALS: BP 151/70
[2019-12-02 09:01] VITALS: BP 128/69
[2019-12-02 11:05] VITALS: BP 123/61
[2019-12-02 15:47] VITALS: BP 148/75
[2019-12-02 19:00] VITALS: BP 135/33
[2019-12-03] VITALS: BP 130/43
[2019-12-03 04:00] VITALS: BP 144/67
[2019-12-03 05:14] LABS: HEMATOCRIT 31.3 % (37.0-47.0); HEMOGLOBIN 9.5 g/dl (12.0-16.0); IMMATURE GRANULOCYTES 0.6 % (0.0-5.0); MEAN CELL VOLUME 93.2 fL CALC (80.0-100.0); MEAN CORPUSCULAR HGB 28.3 pG CALC (26.0-32.0); MEAN CORPUSCULAR HGB CONC 30.4 g/dL CAL (32.0-36.0); NEUT# 5.21 thou/uL (2.00-7.15); RED BLOOD COUNT 3.36 mill/uL (4.20-5.60); RED CELL DISTRI WIDTH 13.2 % (11.5-15.5)
[2019-12-03 05:30] LABS: ALBUMIN 2.7 g/dL (3.2-5.0); BILIRUBIN, TOTAL 0.2 mg/dL (0.0-1.4); C-REACTIVE PROTEIN 0.7 mg/dL (0-0.9); CREATININE 1.1 mg/dL (0.5-1.0); TOTAL PROTEIN 4.8 g/dL (6.3-8.2)
[2019-12-03 08:04] VITALS: BP 107/48
[2019-12-03 11:10] VITALS: BP 122/67
[2019-12-03 15:20] VITALS: BP 129/75
[2019-12-03 19:00] VITALS: BP 119/62
[2019-12-04] VITALS: BP 126/61
[2019-12-04 04:00] VITALS: BP 133/60
[2019-12-04 05:32] LABS: HEMATOCRIT 31.8 % (37.0-47.0); HEMOGLOBIN 9.3 g/dl (12.0-16.0); IMMATURE GRANULOCYTES 1.2 % (0.0-5.0); MEAN CELL VOLUME 93.3 fL CALC (80.0-100.0); MEAN CORPUSCULAR HGB 27.3 pG CALC (26.0-32.0); MEAN CORPUSCULAR HGB CONC 29.2 g/dL CAL (32.0-36.0); NEUT# 5.79 thou/uL (2.00-7.15); RED BLOOD COUNT 3.41 mill/uL (4.20-5.60)
[2019-12-04 06:21] LABS: ALBUMIN 2.7 g/dL (3.2-5.0); BILIRUBIN, TOTAL 0.2 mg/dL (0.0-1.4); CREATININE 1.2 mg/dL (0.5-1.0); POTASSIUM 4.3 mmol/l (3.5-5.1); TOTAL PROTEIN 4.8 g/dL (6.3-8.2)
[2019-12-04 08:00] VITALS: BP 108/45; BP 122/72
[2019-12-04 12:00] VITALS: BP 103/42
[2019-12-04 16:00] VITALS: BP 129/72
[2019-12-04 18:45] VITALS: BP 132/79
[2019-12-05] VITALS: BP 132/76
[2019-12-05 03:30] VITALS: BP 150/72
[2019-12-05 07:40] VITALS: BP 140/56
[2019-12-05 09:58] LABS: HEMATOCRIT 33.1 % (37.0-47.0); HEMOGLOBIN 9.7 g/dl (12.0-16.0); IMMATURE GRANULOCYTES 1.2 % (0.0-5.0); MEAN CELL VOLUME 95.1 fL CALC (80.0-100.0); MEAN CORPUSCULAR HGB 27.9 pG CALC (26.0-32.0); MEAN CORPUSCULAR HGB CONC 29.3 g/dL CAL (32.0-36.0); NEUT# 7.61 thou/uL (2.00-7.15); RED BLOOD COUNT 3.48 mill/uL (4.20-5.60); RED CELL DISTRI WIDTH 13.2 % (11.5-15.5)
[2019-12-05 10:20] LABS: BILIRUBIN, TOTAL 0.2 mg/dL (0.0-1.4); CREATININE 1.1 mg/dL (0.5-1.0); POTASSIUM 4.6 mmol/l (3.5-5.1); TOTAL PROTEIN 5.3 g/dL (6.3-8.2)
[2019-12-05 10:58] VITALS: BP 113/52
[2019-12-05 14:50] VITALS: BP 120/67
[2019-12-05 19:02] VITALS: BP 129/74
[2019-12-06 00:12] VITALS: BP 137/65
[2019-12-06 03:44] VITALS: BP 129/50
[2019-12-06 04:59] LABS: HEMATOCRIT 32.9 % (37.0-47.0); HEMOGLOBIN 9.6 g/dl (12.0-16.0); MEAN CELL VOLUME 94.3 fL CALC (80.0-100.0); MEAN CORPUSCULAR HGB 27.5 pG CALC (26.0-32.0); MEAN CORPUSCULAR HGB CONC 29.2 g/dL CAL (32.0-36.0); RED BLOOD COUNT 3.49 mill/uL (4.20-5.60); RED CELL DISTRI WIDTH 13.3 % (11.5-15.5)
[2019-12-06 05:02] LABS: CREATININE 1.3 mg/dL (0.5-1.0); MAGNESIUM 2.5 mg/dL (1.6-2.3); POTASSIUM 4.4 mmol/l (3.5-5.1)
[2019-12-06 07:32] VITALS: BP 127/58
[2019-12-06 10:58] VITALS: BP 104/51
[2019-12-06 15:10] VITALS: BP 117/61
[2019-12-06 19:25] VITALS: BP 114/57
[2019-12-07 00:07] VITALS: BP 156/68
[2019-12-07 03:08] VITALS: BP 139/53
[2019-12-07 03:39] LABS: HEMATOCRIT 31.3 % (37.0-47.0); HEMOGLOBIN 9.3 g/dl (12.0-16.0); IMMATURE GRANULOCYTES 1.4 % (0.0-5.0); MEAN CELL VOLUME 94.3 fL CALC (80.0-100.0); MEAN CORPUSCULAR HGB CONC 29.7 g/dL CAL (32.0-36.0); NEUT# 9.65 thou/uL (2.00-7.15); RED BLOOD COUNT 3.32 mill/uL (4.20-5.60); RED CELL DISTRI WIDTH 13.2 % (11.5-15.5)
[2019-12-07 03:47] LABS: ALBUMIN 2.9 g/dL (3.2-5.0); BILIRUBIN, TOTAL 0.2 mg/dL (0.0-1.4); CREATININE 1.1 mg/dL (0.5-1.0); POTASSIUM 4.3 mmol/l (3.5-5.1); TOTAL PROTEIN 4.9 g/dL (6.3-8.2)
[2019-12-07 08:45] VITALS: BP 143/59
[2019-12-07 10:51] VITALS: BP 127/52
[2019-12-07 16:25] VITALS: BP 126/65
[2019-12-07 19:00] VITALS: BP 134/55
[2019-12-08] VITALS: BP 121/56
[2019-12-08 04:00] VITALS: BP 143/68
[2019-12-08 05:50] LABS: HEMATOCRIT 30.3 % (37.0-47.0); MEAN CORPUSCULAR HGB 28.2 pG CALC (26.0-32.0); MEAN CORPUSCULAR HGB CONC 29.7 g/dL CAL (32.0-36.0); RED BLOOD COUNT 3.19 mill/uL (4.20-5.60); RED CELL DISTRI WIDTH 13.3 % (11.5-15.5)
[2019-12-08 07:19] LABS: CREATININE 1.1 mg/dL (0.5-1.0); MAGNESIUM 2.3 mg/dL (1.6-2.3); POTASSIUM 4.1 mmol/l (3.5-5.1)
[2019-12-08 08:56] VITALS: BP 133/56
[2019-12-08 11:05] VITALS: BP 119/58
[2019-12-08 15:00] VITALS: BP 126/50
[2019-12-08 19:00] VITALS: BP 138/63
[2019-12-09] VITALS: BP 137/41
[2019-12-09 04:00] VITALS: BP 134/53
[2019-12-09 05:26] LABS: HEMATOCRIT 30.6 % (37.0-47.0); HEMOGLOBIN 8.8 g/dl (12.0-16.0); MEAN CELL VOLUME 94.7 fL CALC (80.0-100.0); MEAN CORPUSCULAR HGB 27.2 pG CALC (26.0-32.0); MEAN CORPUSCULAR HGB CONC 28.8 g/dL CAL (32.0-36.0); NEUT# 7.66 thou/uL (2.00-7.15); RED BLOOD COUNT 3.23 mill/uL (4.20-5.60); RED CELL DISTRI WIDTH 13.2 % (11.5-15.5)
[2019-12-09 05:39] LABS: ALBUMIN 2.7 g/dL (3.2-5.0); ALKALINE PHOSPHATASE 146 u/l (38-126); ANION GAP 6 (6-22 (CALC)); BUN 14 mg/dL (8-23); BUN/CREATININE RATIO 14 (12-20 (CALC)); CARBON DIOXIDE 33 mmol/l (22-30); CHLORIDE 101 mmol/l (95-108); GFR 55 ML/MIN (>=60 (CALC)); GFR FOR AFR.AMER. > 60 ML/MIN (>=60 (CALC)); MAGNESIUM 2.1 mg/dL (1.6-2.3); POTASSIUM 3.9 mmol/l (3.5-5.1); SGOT/AST 18 u/l (9-36); SODIUM 137 mmol/l (137-146); TOTAL PROTEIN 4.8 g/dL (6.3-8.2)
[2019-12-09 05:47] LABS: BILIRUBIN, TOTAL 0.1 mg/dL (0.0-1.4)
[2019-12-09 08:18] VITALS: BP 130/42
[2019-12-09 10:48] VITALS: BP 113/44
[2019-12-09 15:21] VITALS: BP 118/46
[2019-12-09 18:48] LABS: CREATININE 1.1 mg/dL (0.5-1.0); POTASSIUM 4.2 mmol/l (3.5-5.1)
[2019-12-09 19:26] VITALS: BP 128/68
[2019-12-10 00:48] VITALS: BP 145/76
[2019-12-10 04:30] VITALS: BP 120/68
[2019-12-10 07:31] VITALS: BP 140/66
[2019-12-10 11:00] VITALS: BP 110/47
[2019-12-10 15:00] VITALS: BP 128/62
[2019-12-10 18:51] VITALS: BP 129/66
[2019-12-11] VITALS (7 sets, daily range): BP systolic 108–148; BP diastolic 48–68
[2019-12-11 05:34] LABS: HEMATOCRIT 29.2 % (37.0-47.0); HEMOGLOBIN 8.9 g/dl (12.0-16.0); MEAN CELL VOLUME 94.5 fL CALC (80.0-100.0); MEAN CORPUSCULAR HGB 28.8 pG CALC (26.0-32.0); MEAN CORPUSCULAR HGB CONC 30.5 g/dL CAL (32.0-36.0); RED BLOOD COUNT 3.09 mill/uL (4.20-5.60); RED CELL DISTRI WIDTH 13.4 % (11.5-15.5)
[2019-12-11 06:22] LABS: ANION GAP 5 (6-22 (CALC)); BUN 15 mg/dL (8-23); BUN/CREATININE RATIO 15 (12-20 (CALC)); CARBON DIOXIDE 34 mmol/l (22-30); CHLORIDE 101 mmol/l (95-108); GFR 55 ML/MIN (>=60 (CALC)); GFR FOR AFR.AMER. > 60 ML/MIN (>=60 (CALC)); POTASSIUM 3.4 mmol/l (3.5-5.1); SODIUM 136 mmol/l (137-146)
[2019-12-11] MEDS ORDERED: PERCOCET 10/31 COMBO PO (14:18)
[2019-12-11] MEDS ORDERED: NYSTATI1 TOP (14:29)
[2019-12-12 04:00] VITALS: BP 126/46
[2019-12-12 08:17] VITALS: BP 108/37
[2019-12-12 10:43] VITALS: BP 119/50
== END 2019-12-12 13:07 | disposition home health service (06) | DRG 602 ==
LOC: ED 16:47 → ED-I 19:07 → ED 19:15 → MS2 19:16 → ICU 11-28 04:05 → MS2 11-28 04:05 → ICU 11-28 04:06 → MS2 11-30 14:30
PROVIDERS: Nurse Practitioner; Student in an Organized Health Care Education/Training Program; ADMIT Internal Medicine; ATTEND Internal Medicine
PROC: 0T9B70Z Drainage of Bladder with Drainage Device, Via Natural or Artificial Opening (ICD-10-PCS; principal; 2019-11-28)
PROC: 05H533Z Insertion of Infusion Device into Right Subclavian Vein, Percutaneous Approach (ICD-10-PCS; 2019-11-28)
PROC: 0HBLXZZ Excision of Left Lower Leg Skin, External Approach (ICD-10-PCS; 2019-11-30)
PROC: 0HDLXZZ Extraction of Left Lower Leg Skin, External Approach (ICD-10-PCS; 2019-12-07)
DX: L03.116 Cellulitis of left lower limb (principal); I50.33 Acute on chronic diastolic (congestive) heart failure; I13.0 Hypertensive heart and chronic kidney disease with heart failure and stage 1 through stage 4 chronic kidney disease, or unspecified chronic kidney disease; E46 Unspecified protein-calorie malnutrition; E11.22 Type 2 diabetes mellitus with diabetic chronic kidney disease; N18.9 Chronic kidney disease, unspecified; I95.9 Hypotension, unspecified; E11.51 Type 2 diabetes mellitus with diabetic peripheral angiopathy without gangrene; D50.9 Iron deficiency anemia, unspecified; K59.00 Constipation, unspecified; M06.9 Rheumatoid arthritis, unspecified; E87.5 Hyperkalemia; E11.65 Type 2 diabetes mellitus with hyperglycemia; D72.829 Elevated white blood cell count, unspecified; T38.0X5A Adverse effect of glucocorticoids and synthetic analogues, initial encounter; B37.2 Candidiasis of skin and nail; Z86.718 Personal history of other venous thrombosis and embolism; Z79.01 Long term (current) use of anticoagulants; Z95.820 Peripheral vascular angioplasty status with implants and grafts; Z98.84 Bariatric surgery status; Z68.31 Body mass index [BMI] 31.0-31.9, adult; Z79.52 Long term (current) use of systemic steroids; Z20.828 Contact with and (suspected) exposure to other viral communicable diseases
CPT/HCPCS: J3370; Q3014

== ENCOUNTER 2019-12-16 09:07 | Inpatient (IN) | payer MEDICARE ==
[~2019-12-16] VITALS: Ht 147.3 cm; Wt 67.9 kg
[~2019-12-16 09:07] MED LIST changes: +BENICAR5 MG PO; +GABAPENTIN100 MG PO; +METFORMIN500 M2 PO; +NYSTATI1 TOP; +PERCOCET 10/31 COMBO PO
--- NOTE | 2019-12-16 09:07 | NUR ---
PATIENT TO ROOM VIA EMS AND PHYSICIAN AT BEDSIDE FOR EVAL
[2019-12-16 09:56] LABS: HEMOGLOBIN 9.4 g/dl (12.0-16.0); IMMATURE GRANULOCYTES 0.5 % (0.0-5.0); MEAN CELL VOLUME 93.4 fL CALC (80.0-100.0); MEAN CORPUSCULAR HGB 28.3 pG CALC (26.0-32.0); MEAN CORPUSCULAR HGB CONC 30.3 g/dL CAL (32.0-36.0); NEUT# 18.25 thou/uL (2.00-7.15); RED BLOOD COUNT 3.32 mill/uL (4.20-5.60); RED CELL DISTRI WIDTH 13.8 % (11.5-15.5)
--- NOTE | 2019-12-16 10:07 | NUR ---
PT COMPLAINING OF PAIN TO THE LEFT LOWER LEG FROM A PREVIOUS SURGERY AT THIS TIME. INFORMED EDP AND AWAITING MEDICATION ORDERS. INFORMED PT AND DAUGHTER OF EDP PLAN TO TREAT THE PTS LEG PAIN AND THEY BOTH VERBALIZED THEIR UNDERSTANDING. INSTRUCTED TO CALL IF THERE IS ANY NEW COMPLAINTS. WILL CONTINUE TO MONITOR.
--- NOTE | 2019-12-16 10:18 | NUR ---
PTS DAUGHTER CAME TO THE NURSES STATION AND STATED THAT THE PT IS COMPLAINING OF SOB AT THIS TIME. IN TO ASSESS PT AND SAT PT UP WITH A BOOST IN BED. PT STATES SHE FEELS A LITTLE BETTER AND ASKED FOR A BREATHING TX AT THIS TIME. SAO2 IS 100% LUNGS SOUND CLEAR BILATERALLY. INFORMED EDP AND AWAITING ORDERS FOR AN INHALER. WILL CONTINUE TO MONITOR.
[2019-12-16 10:20] LABS: ACT PARTIAL THROMBO TIME 29.4 SECONDS (20.0-32.5); INTERNATIONAL NORMALIZED RATIO 1.2 RATIO (0.7-1.3); PROTHROMBIN TIME 11.8 SECONDS (9.0-12.5)
--- NOTE | 2019-12-16 10:27 | NUR ---
LAB AT BEDSIDE FOR A REDRAW DUE TO HEMALIZED SPECIMEN.
--- NOTE | 2019-12-16 11:00 | NUR ---
CLEANED THE 2 SKIN TEARS TO THE LEFT LATERAL LOWER ARM, THE RIGHT KNEE, AND THE RIGHT DISTAL RAMACHANDRAN. APPLIED PETROLEUM DRESSING WITH TELFA AND WRAPPED WITH A MANN WRAP TO ALL WOUNDS. COMPLETED PT MED REC AT THIS TIME. INFORMED PT TO CALL WITH ANY FURTHER COMPLAINTS. WILL CONTINUE TO MONITOR.
[2019-12-16 11:07] LABS: TOTAL PROTEIN 5.5 g/dL (6.3-8.2)
[2019-12-16 11:20] LABS: BILIRUBIN, TOTAL 0.3 mg/dL (0.0-1.4); CREATININE 2.7 mg/dL (0.5-1.0); POTASSIUM 5.2 mmol/l (3.5-5.1)
[2019-12-16 12:04] LABS: URINE BILIRUBIN - DIPSTICK NEGATIVE (NEGATIVE); URINE BLOOD DIPSTICK SMALL (NEGATIVE); URINE COLOR YELLOW; URINE GLUCOSE - DIPSTICK NEGATIVE (NEGATIVE); URINE KETONE NEGATIVE (NEGATIVE); URINE NITRITE - DIPSTICK NEGATIVE (Negative); URINE PROTEIN - DIPSTICK NEGATIVE (NEG-TRACE); URINE SPECIFIC GRAVITY >=1.030; URINE UROBILINOGEN - DIPSTICK 0.2 E.U./dL (0.2)
[2019-12-16 12:05] LABS: URINE LEUK ESTERASE SMALL (NEGATIVE)
[2019-12-16 12:11] LABS: URINE SQUAMOUS EPITHELIAL CELL MANY EPI/hpf (0-FEW)
[2019-12-16 12:12] LABS: URINE BACTERIA FEW hpf
[2019-12-16 12:13] LABS: URINE WBC 20-50 WBC/hpf (0-5)
[2019-12-16 12:14] LABS: URINE TRANSITIONAL EPI. CELLS FEW hpf
--- NOTE | 2019-12-16 12:25 | NUR ---
PT HAS NO COMPLAINTS AT THIS TIME. CARDIAC LOW SODIUM LUNCH TRAY SERVED AT THIS TIME. PTS DAUGHTER STATED SHE WILL ASSIST HER MOTHER TO EAT. IV FLUIDS INFUSING AT 999 MLS AN HOUR. IV SITE APPEARS HEALTHY WITH NO PAIN AT THIS TIME. BOOSTED PT UP IN BED FOR COMFORT. ADVISED PT AND DAUGHTER TO CALL IF THEY HAVE ANY OTHER NEEDS OR COMPLAINTS AT THIS TIME. WILL CONTINUE TO MONITOR.
--- NOTE | 2019-12-16 12:48 | NUR ---
PT REPORT C ALLED TO FLOOR.
--- NOTE | 2019-12-16 13:40 | NUR ---
PT ARRIVED TO THE UNIT VIA STRETCHER ACCOMPANIED BY STAFF. IV SITE IS FREE FROM REDNESS OR EDEMA.
--- NOTE | 2019-12-16 13:40 | NUR ---
PT TAKEN TO FLOOR PER SRAVANI AND TELEMETRY
[2019-12-16 13:45] VITALS: BP 100/58
--- NOTE | 2019-12-16 14:11 | NUR ---
ASSESSMENT IS COMPLETED: PT HAS SOME SKIN TEARS AND ABRASIONS ON LEFT HAS A DRESSING FROM PAST DEBRIDEMENT, R LEG AND R RAMACHANDRAN HAS A DRESSING FROM SKIN TEAR WELL THE LEFT ARM.FROM FALL AT HOME. IV SITE IS FREE FROM REDNESS OR EDEMA. HR IS REG,PULSES ARE STRONG X4, ABD IS SOFT WITH ACTIVE BS, BREATH SOUNS ARE CLEAR, BILATERALLY, NO C/O SOB. CONTINEU TO OSBERVE AND MONITOR.
--- NOTE | 2019-12-16 14:45 | NUR ---
DR TOMAS IN TO VISIT WITH PT. AND FAMILY .
[2019-12-16 15:00] VITALS: BP 86/48
--- NOTE | 2019-12-16 16:37 | NUR ---
ORCHID SUPERINTENDENT IN TO VISIT WITH FAMILY AND PT.
[2019-12-16 19:00] VITALS: BP 102/61
--- NOTE | 2019-12-16 20:25 | NUR ---
SCHEDULED MEDICATION AND REQUESTED PRN ANALGESIC ADMINISTERED, SEE E-MAR. PHYSICAL ASSESMENT COMPLETE. PLAN OF CARE REVIEWED. PT VERBALIZES UNDERSTANDING AND DENIES QUESTIONS. EXTRA BLANKET PROVIDED PER PTS REQUEST. DENIES FURTHER NEEDS AT THIS TIME. CALL SCOTT WITHIN REACH, AGREES TO CALL PRN.
[2019-12-17] VITALS: BP 105/50
--- NOTE | 2019-12-17 00:40 | NUR ---
PT APPEARS TO BE SLEEPING COMFORTABLY. RESPIRATIONS REGUAL AND UNLABORED. NO APPARENT DISTRESS. CALL SCOTT REMAINS WITHIN REACH.
[2019-12-17 04:00] VITALS: BP 165/86
--- NOTE | 2019-12-17 04:14 | NUR ---
SCRAP BUNCH MAKER KOMAL AT BEDSIDE TO DRAW AM LABS.
--- NOTE | 2019-12-17 04:19 | NUR ---
PT ASSISTED ONTO AND OFF BEDPAN. JACINTO-AREA PATTED CLEAN AND DRY. GLUTEAL CLEFT EXCORIATED. 300ML CLEAR YELLOW URINE EMPTIED FROM BEDPAN. PRN ANALGESIC ADMINISTERED PER PTS REQUEST, SEE E-MAR. PT DENIES FURTHER NEEDS. CALL SCOTT WITHIN REACH, AGREES TO CALL PRN.
[2019-12-17 05:27] LABS: HEMOGLOBIN 8.9 g/dl (12.0-16.0); IMMATURE GRANULOCYTES 0.5 % (0.0-5.0); MEAN CELL VOLUME 95.7 fL CALC (80.0-100.0); MEAN CORPUSCULAR HGB 27.5 pG CALC (26.0-32.0); MEAN CORPUSCULAR HGB CONC 28.7 g/dL CAL (32.0-36.0); NEUT# 11.98 thou/uL (2.00-7.15); RED BLOOD COUNT 3.24 mill/uL (4.20-5.60); RED CELL DISTRI WIDTH 13.9 % (11.5-15.5)
[2019-12-17 05:54] LABS: ALBUMIN 2.7 g/dL (3.2-5.0); BILIRUBIN, TOTAL 0.3 mg/dL (0.0-1.4); CREATININE 2.2 mg/dL (0.5-1.0)
[2019-12-17 06:03] LABS: POTASSIUM 5.4 mmol/l (3.5-5.1)
--- NOTE | 2019-12-17 08:26 | NUR ---
DR FERRIS AND OSMIN AT BEDSIDE DISCUSSING POC
[2019-12-17 09:05] VITALS: BP 105/67
--- NOTE | 2019-12-17 09:05 | NUR ---
PT LAYING IN BED. A&O X3. NO DISTRESS NOTED. PT C/O OF GENERALIZED SHARP PAIN, STATES THAT SHE WAS AT HOME WALKING TO THE BATHROOM IN THE MORNING, SLIPPED ON A THROW RUG AND FELL AND WAS UNABLE TO GET UP AFTERWARDS. MULTIPLE ABRAISONS TO LT ARM AND BILATERAL LEGS. WOUND DRESSING TO LLE IN PLACE, NO NEW DRESSING CHANGE ORDERS AT THIS TIME, DRESSINGS CDI. NO OTHER NEEDS AT THIS TIME. ASSESSMENT COMPLETED. DISCUSSED POC. CALL LIGHT IN REACH. CONTINUE TO MONITOR.
--- NOTE | 2019-12-17 09:55 | NUR ---
PT ASSISTED TO THE BSC BY KIMMY MENDIOLA. PT IN TEARS C/O PAIN, NEW FREQUENCY ORDER IN PLACE FOR LORTAB. ASSISTED PT BACK IN BED, SLOW BUT STEADY GAIT OBSERVED. PILLOW PLACED TO PTS LOWER BACK TO RELIEVE PRESSURE. PAIN MEDICATION TO BE GIVEN. CALL LIGHT IN REACH. CONTINUE TO MONITOR.
[2019-12-17 10:40] VITALS: BP 106/58
[2019-12-17 14:55] VITALS: BP 104/56
[2019-12-17 19:00] VITALS: BP 113/62
--- NOTE | 2019-12-17 19:00 | NUR ---
REPORT RECEIVED FROM Earline VAZQUEZ RN, CARE OF PT ASSUMED AT THIS TIME.
--- NOTE | 2019-12-17 20:25 | NUR ---
PHYSICAL ASSESMENT COMPLETE. PT CURRENTLY DENIES PAIN OR DISCOMFORT. SEE E-MAR FOR ADMINISTRATION OF SCHEDULED AND PRN MEDICATIONS. PT DENIES ANY NEEDS AT THIS TIME. PLAN OF CARE REVIEWED, PT DENIES QUESTIONS, VERBALIZES UNDERSTANDING. ITEMS WITHIN REACH, BED LOCKED IN LOW POSITION W/ BEDRAILS UP X2. CALL SCOTT WITHIN REACH, AGREES TO CALL PRN.
[2019-12-18] VITALS: BP 79/45
--- NOTE | 2019-12-18 00:30 | NUR ---
PT APPEARS TO BE SLEEPING COMFORTABLY, NO APPARENT DISTRESS, RESPIRATIONS REGULAR AND UNLABORED. ITEMS REMAIN WITHIN REACH, BED REMAINS LOCKED IN LOW POSITION W/ BEDRAILS UP X2. CALL SCOTT REMAINS WITHIN REACH.
[2019-12-18 04:00] VITALS: BP 121/56
--- NOTE | 2019-12-18 05:53 | NUR ---
ASSESMENT UNCHANGED FROM BEGINING OF SHIFT BASELINE ASSESMENT. AM HEMODYNAMICS WITHIN BASELINE.PT AFEBRILE. PT DENIES NEEDS AT THIS TIME. ITEMS REMAIN WITHIN REACH, BED REMAINS LOCKED IN LOW POSITION W/ BEDRAILS UP X2.CALL SCOTT REMAINS WITHIN REACH, AGREES TO CALL PRN.
[2019-12-18 06:37] LABS: HEMOGLOBIN 8.3 g/dl (12.0-16.0); MEAN CELL VOLUME 95.7 fL CALC (80.0-100.0); MEAN CORPUSCULAR HGB 27.4 pG CALC (26.0-32.0); MEAN CORPUSCULAR HGB CONC 28.6 g/dL CAL (32.0-36.0); RED BLOOD COUNT 3.03 mill/uL (4.20-5.60); RED CELL DISTRI WIDTH 13.8 % (11.5-15.5)
[2019-12-18 07:06] LABS: CREATININE 1.4 mg/dL (0.5-1.0)
--- NOTE | 2019-12-18 07:20 | NUR ---
REPORT RECEIVED FROM NIC RAMEY. PT RESTING IN BED SEMI FOWLERS WITH EYES CLOSED AND NO SIGNS OF DISTRESS. RESPIRATIONS EVEN AND UNLABORED ON ROOM AIR. SAFETY MEASURES IN PLACE. CALL LIGHT WITHIN REACH.
--- NOTE | 2019-12-18 08:20 | NUR ---
DR. TOMAS AT BEDSIDE FOR DRESSING CHANGE TO LLE WOUND. PT SOUNDS CONGESTED AND REQUESTING BREATHING TREATMENT.
[2019-12-18 08:35] VITALS: BP 117/63
--- NOTE | 2019-12-18 08:41 | NUR ---
RT AT BEDSIDE FOR BREATHING TREATMENT. PT TEARFUL AND C/O 10/10 RLE PAIN AFTER DRESSING CHANGE. OTHER WOUNDS ALSO CHANGED WITH ADAPTIC AND GAUZE DRESSINGS INCLUDING RIGHT RAMACHANDRAN, RIGHT KNEE, AND LEFT ELBOW. LORTAB GIVEN AT THIS TIME FOR PAIN.
--- NOTE | 2019-12-18 09:18 | NUR ---
DR. AGUIRRE AND MERLYN AT BEDSIDE TO DISCUSS [facility] TO REHAB. PT NOW ON CONTACT PRCAUTIONS FOR ESBL IN URINE.
[2019-12-18] MEDS ORDERED: ERTAPENEM1 GM IV (10:49)
[2019-12-18] MEDS ORDERED: PERCOCET 10/31 COMBO PO (10:49)
--- NOTE | 2019-12-18 11:38 | NUR ---
DULCOLAX SUPPOSITORY ADMINSITERED RECTALLY FOR NO BOWEL MOVEMENT SINCE 12/14/19.
--- NOTE | 2019-12-18 11:43 | NUR ---
[facility] TEMPER MILL ROLLER AT BEDSIDE.
[2019-12-18 12:00] VITALS: BP 92/48
--- NOTE | 2019-12-18 12:41 | NUR ---
LORTAB GIVEN FOR SEVERE 10/10 PAIN TO LEFT LEG WOUND; PT CRYING WITH FACIAL GRIMACING. SITTING UP ON EDGE OF BED; UNABLE TO EAT LUNCH DUE TO PAIN. REPOSITIONED BACK IN BED WITH LEG ELEVATED ON PILLOW. RELAXATION TECHNIQUES ENCOURAGED. WILL MONITOR FOR EFFECTIVNESS.
--- NOTE | 2019-12-18 13:50 | NUR ---
LORTAB SLIGHTLY EFFECTIVE BRING PAIN DOWN TO 8/10; PT CONTINUES TO MOAN. ORDER RECEIVED FOR ONE TIME DOSE OF MORPHINE RECEIVED; ADMINISTERED AT THIS TIME. PT RESTING IN BED WITH CALL LIGHT WITHIN REACH.
--- NOTE | 2019-12-18 16:04 | NUR ---
PT NOW AMBULATING IN ROOM; WILL HAVE STAY IN HOSPITAL FOR PICC LINE. WILL HOLD XARELTO ON SATURDAY FOR SCHEDULED INSERTION ON SATURDAY.
[2019-12-18 16:30] VITALS: BP 129/63
--- NOTE | 2019-12-18 16:31 | NUR ---
BED BATH AND LINEN CHANGE GIVEN. PT SOB WITH EXERTION AND REQUESTING BREATHING TREATMENT. RT NOTIFIED.
--- NOTE | 2019-12-18 18:00 | NUR ---
ORDER RECEIVED TO DC CUSTOMER SUPPLY CHAIN ANALYST. JAYIOR REMOVED AT THIS TIME. PT HAS NO REQUESTS OR CONCERNS AT THIS TIME.
--- NOTE | 2019-12-18 18:33 | NUR ---
DAUGHTER AT BEDSIDE. LORTAB GIVEN FOR 7/10 PAIN TO RIGHT FLANK. DRESSING TO LLE WITH MODERATE AMOUNT OF SEROUS DRAINAGE.
[2019-12-18 19:00] VITALS: BP 112/55
--- NOTE | 2019-12-18 19:00 | NUR ---
REPORT RECEIVED FROM Travis SLAUGHTER RN, CARE OF PT ASSUMED AT THIS TIME.
--- NOTE | 2019-12-18 21:00 | NUR ---
DR. AGUIRRE CALLS REGARDING PT'S DISCHARGE. CASE MANAGMENTS LAST NOTE REGARDING DISCHARGE READ TO DR. AGUIRRE. REGARDING D/C PLAN PER CASE MANAGMENT NOTE D/C IS PENDING PICC PLACEMENT AND ISOLATION ROOM AVAILABILITY FOR ESBL IN THE URINE. DR. AGUIRRE STATES PICC CAN BE DONE OUTPATIENT OR ANTIBIOTICS GIVEN THROUGH PERIPHERAL IV. SPOKE WITH CHARLES RN IN CASE MANAGMENT REGARDING THIS INFORMATION.
--- NOTE | 2019-12-18 21:50 | NUR ---
ADMISSION AND PHYSICAL ASSESMENT COMPLETE. PT CURRENTLY DENIES PAIN OR DISCOMFORT. SCHEDULED MEDS ADMINISTERED, SEE E-MAR. PT DENIES ANY NEEDS AT THIS TIME. PLAN OF CARE REVIEWED, PT DENIES QUESTIONS, VERBALIZES UNDERSTANDING. ITEMS WITHIN REACH, BED LOCKED IN LOW POSITION W/ BEDRAILS UP X2. CALL SCOTT WITHIN REACH, AGREES TO CALL PRN.
[2019-12-19 04:00] VITALS: BP 115/55
[2019-12-19 07:02] VITALS: BP 144/62
--- NOTE | 2019-12-19 08:35 | NUR ---
ASSESSMENT DONE. PT IS A&O X3. IVF INFSUING WELL. PT STATED PAIN IN LEGS. MEDICATED PT WITH LORTAB. DRESSING IN PLACE IN MALISSA LEGS AND LEFT RAMACHANDRAN. PT DENIES ANY OTHER NEEDS AT THIS TIME. SAFETY PRECAUTIONS REINFORCED AND CALL LIGHT IN REACH.
--- NOTE | 2019-12-19 12:43 | NUR ---
PT IS SITTING IN THE SIDE OF THE BED. PT STATED PAIN IN LEGS. MEDICATED PT WITH LORTAB. DRESSING CHANGE IN LEFT LEG. PT DENIES ANY OTHER NEEDS AT THIS TIME. CALL LIGHT IN REACH.
[2019-12-19 15:15] VITALS: BP 103/64
[2019-12-19 15:16] VITALS: BP 166/71
--- NOTE | 2019-12-19 15:45 | NUR ---
CHANGE PT DRESSING IN RIGHT LEG. PT TOLERATED WELL.
--- NOTE | 2019-12-19 16:16 | NUR ---
ER NURSE UP TO START IV; 22G TO RAC.
--- NOTE | 2019-12-19 17:20 | NUR ---
PT IS SITTING IN COUCH WAITING FOR TRANSPORTION TO GET HER. DAUGHTER IN ROOM. PT DENIES ANY NEEDS AT THIS TIME. CALL LIGHT IN REACH.
--- NOTE | 2019-12-19 18:39 | NUR ---
Discharge instructions given. Patient verbalizes understanding of same. Discharged in stable condition via Wheelchair to *Other with staff. All belongings sent with pt.
--- NOTE | 2019-12-19 18:54 | NUR ---
REPORT GIVEN TO NURSE FROM [facility].
== END 2019-12-19 18:38 | DRG 558 ==
LOC: ED 09:07 → ED-I 11:50 → ED 12:00 → MS2 12:01
PROVIDERS: Nurse Practitioner; Student in an Organized Health Care Education/Training Program; ADMIT Internal Medicine; ATTEND Internal Medicine
DX: M62.82 Rhabdomyolysis (principal); N17.9 Acute kidney failure, unspecified; N39.0 Urinary tract infection, site not specified; Z16.12 Extended spectrum beta lactamase (ESBL) resistance; I13.0 Hypertensive heart and chronic kidney disease with heart failure and stage 1 through stage 4 chronic kidney disease, or unspecified chronic kidney disease; L03.116 Cellulitis of left lower limb; I50.32 Chronic diastolic (congestive) heart failure; E11.22 Type 2 diabetes mellitus with diabetic chronic kidney disease; N18.2 Chronic kidney disease, stage 2 (mild); S41.112A Laceration without foreign body of left upper arm, initial encounter; S41.111A Laceration without foreign body of right upper arm, initial encounter; S81.812A Laceration without foreign body, left lower leg, initial encounter; S81.811A Laceration without foreign body, right lower leg, initial encounter; M06.9 Rheumatoid arthritis, unspecified; E11.51 Type 2 diabetes mellitus with diabetic peripheral angiopathy without gangrene; E87.5 Hyperkalemia; I95.9 Hypotension, unspecified; L89.301 Pressure ulcer of unspecified buttock, stage 1; B96.20 Unspecified Escherichia coli [E. coli] as the cause of diseases classified elsewhere; W19.XXXA Unspecified fall, initial encounter; Y92.009 Unspecified place in unspecified non-institutional (private) residence as the place of occurrence of the external cause; Z98.84 Bariatric surgery status; Z79.84 Long term (current) use of oral hypoglycemic drugs; Z86.718 Personal history of other venous thrombosis and embolism; Z20.828 Contact with and (suspected) exposure to other viral communicable diseases

== ENCOUNTER 2020-01-15 08:46 | Emergency (ER) | payer MEDICARE ==
[~2020-01-15] VITALS: Ht 147.3 cm; Wt 62.3 kg
[~2020-01-15 08:46] MED LIST changes: +BENICAR40 MG PO; -BENICAR5 MG PO; +ERTAPENEM1 GM IV
[2020-01-15 09:37] LABS: IMMATURE GRANULOCYTES 0.4 % (0.0-5.0); MEAN CELL VOLUME 90.4 fL CALC (80.0-100.0); MEAN CORPUSCULAR HGB 27.2 pG CALC (26.0-32.0); MEAN CORPUSCULAR HGB CONC 30.1 g/dL CAL (32.0-36.0); NEUT# 3.03 thou/uL (2.00-7.15); RED BLOOD COUNT 4.16 mill/uL (4.20-5.60); RED CELL DISTRI WIDTH 16.8 % (11.5-15.5)
[2020-01-15 09:49] LABS: HEMATOCRIT 37.6 % (37.0-47.0); HEMOGLOBIN 11.3 g/dl (12.0-16.0)
[2020-01-15 09:59] LABS: ALBUMIN 2.4 g/dL (3.2-5.0); ALKALINE PHOSPHATASE 158 u/l (38-126); ANION GAP 9 (6-22 (CALC)); BILIRUBIN, TOTAL 0.4 mg/dL (0.0-1.4); BUN 15 mg/dL (8-23); BUN/CREATININE RATIO 14 (12-20 (CALC)); CARBON DIOXIDE 28 mmol/l (22-30); CHLORIDE 106 mmol/l (95-108); CREATININE 1.1 mg/dL (0.5-1.0); GFR 49 ML/MIN (>=60 (CALC)); GFR FOR AFR.AMER. 59 ML/MIN (>=60 (CALC)); LIPASE 35 u/l (23-300); POTASSIUM 4.5 mmol/l (3.5-5.1); SGOT/AST 29 u/l (9-36); SODIUM 139 mmol/l (137-146); TOTAL PROTEIN 4.8 g/dL (6.3-8.2)
[2020-01-15 11:19] LABS: URINE BILIRUBIN - DIPSTICK NEGATIVE (NEGATIVE); URINE BLOOD DIPSTICK SMALL (NEGATIVE); URINE COLOR YELLOW; URINE GLUCOSE - DIPSTICK NEGATIVE (NEGATIVE); URINE KETONE 15 mg/dL (NEGATIVE); URINE LEUK ESTERASE NEGATIVE (NEGATIVE); URINE NITRITE - DIPSTICK NEGATIVE (Negative); URINE PH 5.5 (4.5-8.0); URINE PROTEIN - DIPSTICK NEGATIVE (NEG-TRACE); URINE SPECIFIC GRAVITY 1.015; URINE UROBILINOGEN - DIPSTICK 0.2 E.U./dL (0.2)
[2020-01-15 11:20] LABS: URINE RBC 0-2 RBC/hpf (0-5)
[2020-01-15] MEDS ORDERED: HYOSCYAMINE0.125 M3 PO (11:26)
[2020-01-15] MEDS ORDERED: CEPHALEXIN500 MG PO (11:26)
[2020-01-15 11:33] VITALS: BP 170/74
== END 2020-01-15 11:55 | disposition home or self-care (01) ==
LOC: ED 08:46
PROVIDERS: Family Medicine
DX: R10.84 Generalized abdominal pain (principal); L03.116 Cellulitis of left lower limb; I11.0 Hypertensive heart disease with heart failure; I50.9 Heart failure, unspecified; E11.9 Type 2 diabetes mellitus without complications; Z98.84 Bariatric surgery status; Z79.84 Long term (current) use of oral hypoglycemic drugs
CPT/HCPCS: Q9967

== ENCOUNTER 2020-02-15 16:39 | Inpatient (IN) | payer MEDICARE ==
[~2020-02-15] VITALS: Ht 147.3 cm; Wt 56.0 kg
[~2020-02-15 16:39] MED LIST changes: +HYOSCYAMINE0.125 M3 PO
--- NOTE | 2020-02-15 17:00 | NUR ---
PATIENT TO ROOM VIA WHEELCHIAR.
--- NOTE | 2020-02-15 17:23 | NUR ---
PT HAS LEFT LEG PAIN PT LAYING IN BED WITHOUT EVIDENCE OF ACUTE DISTRESS
--- NOTE | 2020-02-15 18:29 | NUR ---
UNABLE TO GET AN IV STARTED. AWAITING FOR ANOTHER NURSE TO GET FREE TO TRY AT THIS TIME
[2020-02-15 18:57] LABS: HEMATOCRIT 40.3 % (37.0-47.0); HEMOGLOBIN 12.3 g/dl (12.0-16.0); IMMATURE GRANULOCYTES 0.3 % (0.0-5.0); MEAN CELL VOLUME 91.2 fL CALC (80.0-100.0); MEAN CORPUSCULAR HGB 27.8 pG CALC (26.0-32.0); MEAN CORPUSCULAR HGB CONC 30.5 g/dL CAL (32.0-36.0); NEUT# 6.2 thou/uL (2.00-7.15); RED BLOOD COUNT 4.42 mill/uL (4.20-5.60); RED CELL DISTRI WIDTH 18.1 % (11.5-15.5)
[2020-02-15 19:06] LABS: CREATININE 1.2 mg/dL (0.5-1.0); POTASSIUM 5.1 mmol/l (3.5-5.1)
[2020-02-15 21:00] VITALS: BP 158/72
[2020-02-16 00:10] VITALS: BP 111/52
[2020-02-16 04:00] VITALS: BP 116/55
[2020-02-16 05:27] LABS: HEMATOCRIT 34.5 % (37.0-47.0); HEMOGLOBIN 10.5 g/dl (12.0-16.0); IMMATURE GRANULOCYTES 0.3 % (0.0-5.0); MEAN CELL VOLUME 89.8 fL CALC (80.0-100.0); MEAN CORPUSCULAR HGB 27.3 pG CALC (26.0-32.0); MEAN CORPUSCULAR HGB CONC 30.4 g/dL CAL (32.0-36.0); NEUT# 3.42 thou/uL (2.00-7.15); RED BLOOD COUNT 3.84 mill/uL (4.20-5.60); RED CELL DISTRI WIDTH 18.1 % (11.5-15.5)
[2020-02-16 05:35] LABS: ALBUMIN 2.4 g/dL (3.2-5.0); ALKALINE PHOSPHATASE 151 u/l (38-126); ANION GAP 8 (6-22 (CALC)); BUN 17 mg/dL (8-23); BUN/CREATININE RATIO 18 (12-20 (CALC)); CARBON DIOXIDE 22 mmol/l (22-30); CHLORIDE 113 mmol/l (95-108); CREATININE 0.9 mg/dL (0.5-1.0); GFR > 60 ML/MIN (>=60 (CALC)); GFR FOR AFR.AMER. > 60 ML/MIN (>=60 (CALC)); POTASSIUM 4.8 mmol/l (3.5-5.1); SODIUM 138 mmol/l (137-146); TOTAL PROTEIN 4.7 g/dL (6.3-8.2)
[2020-02-16 05:53] LABS: BILIRUBIN, TOTAL 0.2 mg/dL (0.0-1.4); SGOT/AST 57 u/l (9-36)
--- NOTE | 2020-02-16 07:15 | NUR ---
REPORT RECEIVED FROM NIC CHAMORRO.
[2020-02-16 08:35] VITALS: BP 140/65
--- NOTE | 2020-02-16 08:35 | NUR ---
PT RESTING IN SEMI FOWLERS POSITION,A&O X3;VS OBTAINED AND ASSESSMENT COMPLETED;PT DENIES ANY CURRENT PAIN OR DISCOMFORTS,PAIN SCALE AND REPORTING EDUCATED;RESPIRATIONS EVEN AND UNLABORED ON RA,CLEAR LUNG SOUNDS;ABDOMEN SOFT ON PALPATION AND ACTIVE IN ALL 4 QUADRANTS;WEAK PEDAL PULSES;LLE DRESSING CDI AND +3 EDEMA NOTED TO LLE;#20G TO RAC FLUSHED AND PATENT,SITE APPEARS HEALTHY AND ABX STARTED AT THIS TIME;ACCUCHECK 73, NO COVERAGE NEEDED;PT DENIES ANY ADDITIONAL NEEDS AND IS ENCOURAGED TO CALL FOR ASSISTANCE IF NEEDED;CALL LIGHT IN REACH;WILL CONTINUE TO MONITOR
--- NOTE | 2020-02-16 08:49 | NUR ---
S: NOE NAIR is a 74 F who presents with cellulitis. She has a history of congestive heart failure, RA, hypertension, DM2, DVT, PAD, AND CKD. All medications in patient's chart were reviewed. O: VS: BP 140/65 mmHg, P 74 bpm, RR 19 breaths per minute, T 98.0 F W 56.3 kg, HT 58 in, Scr= 1.0 mg/dL, CrCl= 45.2 ml/min A: Blood culture is pending. P: Patient is on Zosyn 3.375 g IV q6h. Vancomycin ordered for pharmacy to dose. Start Vancomycin 1 g IV Q24H. Vancomycin trough is drawn before the 4th dose on 02/19/20 at 1930. Vancomycin goal trough is between 10-15 mcg/ml. Pharmacy will follow and or advise on antibiotics use as needed.
[2020-02-16 10:50] VITALS: BP 155/73
--- NOTE | 2020-02-16 11:15 | NUR ---
PT RESTING IN SEMI FOWLERS POSITION;RESPIRATIONS EVEN AND UNLABORED ON RA;PT REPORTS LLE PAIN RATING 10/10 ON THE PAIN SCALE AND REQUESTS PAIN MEDICATION,PT MEDICATED WITH PRN LORTAB 5/325MG PO;ACCUCHECK 76, NO COVERAGE NEEDED;PT DENIES ANY ADDITIONAL NEEDS AND IS ENCOURAGED TO CALL FOR ASSISTANCE IF NEEDED;CALL LIGHT IN REACH;WILL CONTINUE TO MONITOR
--- NOTE | 2020-02-16 15:26 | NUR ---
ANALISA, OR NOTIFIED OF POSSIBLE DEBRIMENT OF LLE WITH TOMORROW 02/17/20/
[2020-02-16 15:29] VITALS: BP 131/65
--- NOTE | 2020-02-16 15:30 | NUR ---
PT RESTING IN SEMI FOWLERS POSITION;RESPIRATIONS EVEN AND UNLABORED ON RA;PT REPORTS LLE PAIN RATING 6/10 ON THE PAIN SCALE, PT MEDICATED WITH PRN TYLENOL 650MG PO AT THIS TIME;IV SITE REMAINS PATENT;LLE DRESSING CDI;PT DENIES ANY ADDITIONAL NEEDS AT THIS TIME AND IS ENCOURAGED TO CALL FOR ASSISTANCE IF NEEDED;FALL PRECAUTIONS REMAIN IN PLACE WITH CALL LIGHT IN REACH;WILL CONTINUE TO MONITOR
--- NOTE | 2020-02-16 17:19 | NUR ---
PT RESTING IN SEMI FOWLERS POSITION;RESPIRATIONS EVEN AND UNLABORED;PT REPORTS LLE PAIN AND REQUESTS PAIN MEDICATION,PT MEDICATED WITH PRN LORTAB 5/325MG PO;RESP PCR SWAB COLLECTED AT THIS TIME AND PT TOLERATED WELL;PT DENIES ANY ADDITIONAL NEEDS;CALL LIGHT IN REACH;WILL CONTINUE TO MONITOR
[2020-02-16 19:20] VITALS: BP 105/64
--- NOTE | 2020-02-16 19:30 | NUR ---
PATIENT RESTING IN BED AT THIS TIME-AWAKE ALERT AND ORIENTEDX3. PATIENT WITH DRESSING TO LLE INTACT AND SECURED WITH CHARBEL WRAP. LLE IS SWOLLEN WITH WEAK PULSES. IV SITE TO RAC INTACT AND APPEARS HEALTHY AT THIS TIME WITH GOOD BLOOD RETURN. PATIENT FOR OR TOMORROW WITH DR. SAM. SAFETY PRECAUTIONS REINFORCED. CALL LIGHT IN REACH. WILL CONT TO MONITOR.
--- NOTE | 2020-02-16 21:00 | NUR ---
PATIENT RESTING IN BED. VANCO INFUSING ORDERED VIA RAC SITE. ACCU-CHECK 86-NO COVERAGE NEEDED. HS SNACK PROVIDED. CALL LIGHT IN REACH. WILL CONT TO MONITOR.
--- NOTE | 2020-02-16 23:21 | NUR ---
PATIENT RESTING IN BED AT THIS TIME-AWAKE ALERT AND ORIENTEDX3. PATIENT WITH DRESSING TO LLE INTACT AND SECURE WITH CHARBEL WRAP. IV SITE TO RAC INTACT AND APPEARS HEALTHY AT THIS TIME. PATIENT FOR OR TOMORROW FOR I&D WITH DR. SAM. SAFETY PRECAUTIONS REINFORCED. CALL LIGHT IN REACH. WILL CONT TO MONITOR.
--- NOTE | 2020-02-16 23:32 | NUR ---
C/O LLE PAIN 8/10 ON PAIN SCALE. MEDICATED WITH LORTAB 5/325MG PO FOR PAIN. ZOSYN HUNG ORDERED VIA RAC IV SITE. UP TO BR TO VOID. SAFETY PRECAUTIONS REINFORCED. CALL LIGHT IN REACH. WILL CONT TO MONITOR.
[2020-02-17] VITALS (11 sets, daily range): BP systolic 80–127; BP diastolic 44–63
--- NOTE | 2020-02-17 04:40 | NUR ---
PATIENT APPEARS SLEEPING AT THIS TIME WITH EYES CLOSED. RESPS ARE EVEN AND UNLABORED, CALL LIGHT IN REACH. WILL CONT TO MONITOR.
[2020-02-17 05:33] LABS: HEMATOCRIT 35.1 % (37.0-47.0); HEMOGLOBIN 10.8 g/dl (12.0-16.0); MEAN CELL VOLUME 91.6 fL CALC (80.0-100.0); MEAN CORPUSCULAR HGB 28.2 pG CALC (26.0-32.0); MEAN CORPUSCULAR HGB CONC 30.8 g/dL CAL (32.0-36.0); RED BLOOD COUNT 3.83 mill/uL (4.20-5.60)
[2020-02-17 05:52] LABS: CREATININE 1.1 mg/dL (0.5-1.0); MAGNESIUM 1.9 mg/dL (1.6-2.3)
--- NOTE | 2020-02-17 07:05 | NUR ---
REPORT RECEIVED FROM NIC SKY.
--- NOTE | 2020-02-17 07:50 | NUR ---
PT RESTING IN SEMI FOWLERS POSITION,A&O X3;VS OBTAINED AND ASSESSMENT COMPLETED;PT DENIES ANY CURRENT PAIN OR DISCOMFORTS,PAIN SCALE AND REPORTING EDUCATED;RESPIRATIONS EVEN AND UNLABORED ON RA,CLEAR LUNG SOUNDS NOTED;ABDOMEN SOFT ON PALPATION AND ACTIVE IN ALL 4 QUADRANTS;WEAK PEDAL PULSES;DRESSING TO LLE CDI WITH +3 EDEMA NOTED;#22G TO RAC FLUSHED AND PATENT,SITE APPEARS HEALTHY;ACCUCHECK 87, NO COVERAGE NEEDED;PT EDUCATED ON NPO DIET AFTER 0900 DUE TO SCHEDULED I&D @ 1730;PT DENIES ANY ADDITIONAL NEEDS AND IS ENCOURAGED TO CALL FOR ASSISTANCE IF NEEDED;FALL PRECAUTIONS IN PLACE WITH BED IN THE LOWEST POSITION AND CALL LIGHT IN REACH;WILL CONTINUE TO MONITOR
--- NOTE | 2020-02-17 12:00 | NUR ---
PT RESTING IN SEMI FOWLERS POSITION;RESPIRATIONS EVEN AND UNLABORED ON RA;PT REPORTS LLE PAIN RATING 7/10 ON THE PAIN SCALE AND REQUESTS PAIN MEDICATION,PT MEDICATED WITH PRN MORPHINE 4MG IVP AT THIS TIME;IV SITE PATENT AND ABX STARTED PER ORDER;ACCUCHECK 83, NO COVERAGE NEEDED;PT REMAINS NPO AT THIS TIME;ASSESSMENT UNCHANGED;PT ENCOURAGED TO CALL FOR ASSISTANCE IF NEEDED;FALL PRECAUTIONS IN PLACE WITH BED IN THE LWOEST POSITION AND CALL LIGHT IN REACH;WILL CONTINUE TO MONITOR
--- NOTE | 2020-02-17 15:38 | NUR ---
BRIELLE,RT AT BEDSIDE ADMINISTERING BREATHING TX.
--- NOTE | 2020-02-17 16:30 | NUR ---
PT RESTING IN SEMI FOWLERS POSITION;RESPIRATIONS EVEN AND UNLABORED ON RA;PT DENIES ANY CURRENT PAIN OR NEEDS;IV SITE PATENT;LLE DRESSING IN PLACE;PT EDUCATED THAT OR WILL BE PICKING HER UP IN APPROX 10 MINS;PT DENIES ANY ADDITIONAL NEEDS;ENCOURAGED TO CALL FOR ASSISTANCE IF NEEDED;FALL PRECAUTIONS IN PLACE WITH BED IN THE LOWEST POSITION AND CALL LIGHT IN REACH;WILL CONTINUE TO MONITOR
--- NOTE | 2020-02-17 16:45 | NUR ---
PT TRANSPORTED TO OR IN STABLE CONDITION VIA STRETCHER ACCOMPANIED BY NIC MALCOLM.
--- NOTE | 2020-02-17 18:47 | NUR ---
CALLED [facility] REGARDING PLACEMENT OF WOUND VAC WITH SERIAL NUMBER [id number]. CALLED THEM AT SPOKE TO CAMELIA AND WAS GIVEN CONFIRMATION NUMBER [id number].
--- NOTE | 2020-02-17 19:30 | NUR ---
PATIENT RETURNED FROM OR VIA STRETCHER WITH OR STAFF IN ATTENDANCE. PATIENT IS ABLE TO ASSIST TRANSFERRING FROM STRETCHER TO BED. PATIENT IS AWAKE ALERT AND ORIENTEDX3. PATIENT DENIES PAIN AT THIS TIME. O2 VIA NASAL CANNULA IN PLACE AT 2LPM. IVF PATENT AND INFUSING VIA RAC SITE. SITE IS HEALTHY AT THIS TIME. PATIENT WITH WOUND VAC TO LLE RAMACHANDRAN WOUND WITH DRESSING INTACT. WOUND VAC SET TO 125MMHG CONT ORDERED. NO DRAINAGE NOTED AT THIS TIME. PATIENT IS TAKING PO WATER-DENIES ANY NAUSEA AT THIS TIME. VS TAKEN AND RECORDED. SAFETY PRECAUTIONS REVIEWED WITH PATIENT. CALL LIGHT IN REACH. WILL CONT TO MONITOR.
--- NOTE | 2020-02-17 21:30 | NUR ---
PATIENT RESTING IN BED-EATING [employer]OW[employer] DINNER PROVIDED. PATIENT WITH NO COMPLAINTS OF NAUSEA AT THIS TIME. VANCO INFUSING ORDERED VIA [facility] SITE. PATIENT ASSISTED OOB TO BSC TO VOID AND THEN BACK TO BED. DRESSING TO LEFT RAMACHANDRAN REMAINS INTACT WITH WOUND VAC IN PLACE. SAFETY PRECAUTIONS REINFORCED. CALL LIGHT IN REACH. WILL CONT TO MONITOR.
--- NOTE | 2020-02-17 22:00 | NUR ---
BP-103/62, HR-67. O2 SATS 97. COREG WAS HELD DUR TO LOW BP EARLIER. NO COMPLAINTS AT THIS TIME.WOUND VAC INTACT TO LEFT RAMACHANDRAN-NO DRAINAGE AT THIS TIME. VANCO INFUSING ORDERED. CALL LIGHT IN REACH. WILL CONT TO MONITOR.
--- NOTE | 2020-02-17 23:49 | NUR ---
PATIENT RESTING IN BED WITH O2 VIA NASAL CANNULA IN PLACE. ZOSYN HUNG AND INFUSING ORDERED VIA RAC SITE. SITE REMAINS HEALTHY AT THIS TIME. DRESSING TO LEFT RAMACHANDRAN INTACT WITH WOUND VAC IN PLACE. SAFETY PRECAUTIONS REINFORCED. CALL LIGHT IN REACH. WILL CONT TO MONITOR.
[2020-02-18] VITALS (8 sets, daily range): BP systolic 86–123; BP diastolic 48–62
--- NOTE | 2020-02-18 03:44 | NUR ---
PATIENT RESTING IN BED-C/O SEVERE LEFT LE PAIN-8/10 ON PAIN SCALE. MEDICATED WITH MORPHINE 2MG IVP FOR PAIN. WOUND VAC INTACT TO LLE WOUND-NO DRAINAGE AT THIS TIME. O2 VIA NASAL CANNULA IN PLACE. SAFETY PRECAUTIONS REINFORCED. CALL LIGHT IN REACH.WILL CONT TO MONITOR.
--- NOTE | 2020-02-18 04:55 | NUR ---
PATIENT WITH NO RELIEF FROM MORPHINE GIVEN. PATIENT MEDICATED WITH LORTAB 5/325MG PO FOR 8/10 ON PAIN SCALE LLE. LLE REMAINS ELEVATED ON PILLOWS. CMS TO LEFT FOOT WNL. WOUND VAC INTACT AT 125HHMG CONT WITH NO DRAINAGE NOTED. O2 VIA NASAL CANNULA IN PLACE.SAFETY PRECAUTIONS REINFORCED. CALL LIGHT IN REACH. WILL CONT TO MONITOR.
--- NOTE | 2020-02-18 07:05 | NUR ---
REPORT RECEIVED FROM NIC SKY
--- NOTE | 2020-02-18 08:25 | NUR ---
PT RESTING IN SEMI FOWLERS POSITION,A&O X3;VS OBTAINED AND ASSESSMENT COMPLETED, BP 91/62 HR 70;MORNING BP MEDICATIONS HELD AT THIS TIME;PT DENIES ANY CURRENT PAIN OR DISCOMFORTS,PAIN SCALE AND REPORTING EDUCATED;PT POD #1 LLE I&D WITH WOUND VAC PLACEMENT;RESPIRATIONS SHALLOW ON O2 @ 2L VIA NC, PT IS NOT HOME OXYGEN DEPENDENT;ABDOMEN SOFT ON PALPATION AND ACTIVE IN ALL 4 QUADRANTS;WEAK PEDAL PULSES;+3 EDEMA NOTED TO LLE;WOUND VAC PATENT AND RUNNING WITH EASE @ 125 PER ORDER TO LLE AND DRESSING REMAINS CDI;MINIMAL DRAINAGE NOTED;#22G TO RAC FLUSHED AND PATENT,SITE APPEARS HEALTHY;ACCUCHECK 77, NO COVERAGE NEEDED;PT DENIES ANY ADDITIONAL NEEDS AND IS ENCOURAGED TO CALL FOR ASSISTANCE IF NEEDED;FALL PRECAUTIONS IN PLACE WITH CALL LIGHT IN REACH;WILL CONTINUE TO MONITOR
--- NOTE | 2020-02-18 11:25 | NUR ---
PT RESTING IN SEMI FOWLERS POSITION;RESPIRATIONS EVEN AND UNLABORED ON O2 @2L VIA NC;PT REPORTS LLE PAIN RATING 8/10 ON THE PAIN SCALE AND REQUESTS PAIN MEDICATION,PT MEDICATED WITH PRN LORTAB 5/325MG PO AT THIS TIME;IV SITE PATENT AND ABX STARTED PER ORDER;WOUND VAC RUNNING WITH EASE TO LLE;ASSESSMENT REMAINS UNCHANGED AT THIS TIME;ENCOURAGED TO CALL FOR ASSISTANCE IF NEEDED;CALL LIGHT IN REACH;WILL CONTINUE TO MONITOR
--- NOTE | 2020-02-18 12:10 | NUR ---
PT RESTING AT BEDSIDE EATING LUNCH;RESPIRATIONS EVEN AND UNLABORED ON O2;PT REPORTS PAIN RELEIF AFTER PRN LORTAB ADMINISTRATION;BP RE-CHECK 121/59;IV SITE PATENT;PT DENIES ANY ADDITIONAL NEEDS;ENCOURAGED TO CALL FOR ASSISTANCE IF NEEDED;CALL LIGHT IN REACH;WILL CONTINUE TO MONITOR
--- NOTE | 2020-02-18 15:40 | NUR ---
PT RESTING IN SEMI FOWLERS POSITION;RESPIRATIONS EVEN AND UNLABORED ON RA;PT REPORTS LLE PAIN AND REQUESTS PRN LORTAB, PT EDUCATED ON PAIN MEDICATION SCHEDULE AND VERBALIZES UNDERSTANDING;IV SITE PATENT;WOUND VAC RUNNING WITH EASE TO LLE;PT DENIES ANY ADDITIONAL NEEDS AND IS ENCOURAGED TO CALL FOR ASSISTANCE IF NEEDED;CALL LIGHT IN REACH;WILL CONTINUE TO MONITOR
--- NOTE | 2020-02-18 17:20 | NUR ---
PT REPORTS LLE PAIN RATING 7/10 ON THE PAIN SCALE AND REQUESTS PAIN MEDICATION, PT MEDICATED WITH PRN LORTAB 5/325MG PO AT THIS TIME;WILL CONTINUE TO MONITOR FOR EFFECTIVENESS
--- NOTE | 2020-02-18 20:04 | NUR ---
PHYSICAL ASSESMENT COMPLETE. PT CURRENTLY DENIES PAIN OR DISCOMFORT. SCHEDULED MEDICATIONS AND PRN MEDICATION ADMINISTERED, SEE E-MAR. PT DENIES ANY NEEDS AT THIS TIME. PLAN OF CARE REVIEWED, PT DENIES QUESTIONS, VERBALIZES UNDERSTANDING. ITEMS WITHIN REACH, BED LOCKED IN LOW POSITION W/ BEDRAILS UP X2. CALL SCOTT WITHIN REACH, AGREES TO CALL PRN.
--- NOTE | 2020-02-19 00:11 | NUR ---
PT LAYING IN BED WITH EYES CLOSED, APPEARS TO BE SLEEPING, APPEARS COMFORTABLE AND IN NO DISTRESS. RESPIRATIONS REGULAR AND UNLABORED. IV ANTIBIOTICS RUNNING. WOUND VAC IN PLACE RUNNING AT 125 MMGH WITH SCANT RETURN. ITEMS REMAIN WITHIN REACH, CALL SCOTT REMAINS WITHIN REACH. BED REMAINS LOCKED AND IN LOW POSITION WITH BEDRAILS UP X2. WILL CONTINUE TO MONITOR.
--- NOTE | 2020-02-19 03:53 | NUR ---
PT RESTING IN BED, NO SIGNS OF DISTRESS NOTED, RESP EVEN AND UNLABORED. PT VOICES NO NEEDS OR COMPLAINTS AT THIS TIME. CALL LIGHT IN REACH, CONTINUE TO MONITOR.
[2020-02-19 04:00] VITALS: BP 119/58
[2020-02-19 07:30] VITALS: BP 122/58
--- NOTE | 2020-02-19 07:35 | NUR ---
PATIENT IN BED AWAKE AND A/OX3. STATES HER PAIN LEVEL IS A 3 AT THIS TIME CALL LIGHT IS WITHIN REACH SIDERAILS UP X2. PATIENT HAS [employer] WOUND VAC IN PLACE AND DRESSING ON LL RAMACHANDRAN AT THIS TIME. PATIENT DENIES ANY OTHER NEEDS AT THIS TIME PHD INTERN DONE SEE INTERVENTIONS.
[2020-02-19 10:30] VITALS: BP 119/64
[2020-02-19] MEDS ORDERED: AMOX/K CLAV875 M1 PO (10:46)
[2020-02-19] MEDS ORDERED: OXYCOD-APAP1 TA1 PO (11:01)
--- NOTE | 2020-02-19 11:36 | NUR ---
PATIENT D/C AT THIS TIME PATIENT VERBALIZES D/C INSTRUCTIONS.
--- NOTE | 2020-02-19 12:29 | NUR ---
PATIENT IV REMOVED AT THIS TIME DUE TO D/C.
[2020-02-19 15:00] VITALS: BP 126/62
--- NOTE | 2020-02-19 15:40 | NUR ---
WOUND VC CHANGED OUT TO HOME WOUND VAC AT THIS TIME.
--- NOTE | 2020-02-19 16:35 | NUR ---
Discharge instructions given. Patient verbalizes understanding of same. Discharged in stable condition via Wheelchair to Home with family. All belongings sent with pt.
--- NOTE | 2020-02-19 18:18 | NUR ---
CALLED [facility], [facility] WOUND VAC IN AT SPOKE TO IMTIAZ WAS GIVEN CONFIRMATION NUMBER [id number] FOR WOUND VAC NUMBER [id number].
--- NOTE | 2020-02-20 11:24 | NUR ---
WOUND CX SHOWS MRSA, PT WAS DISCHARGED ON AUGMENTIN BID X14 DAYS. RESULTS REPORTED TO Fredis MCGRATH, NEW RX FOR DOXYCYCLINE 100MG PO BID X14 DAYS CALLED IN TO [facility], PT IS AWARE WELL TO STOP AUGMENTIN AND START DOXY.
== END 2020-02-19 16:40 | disposition home health service (06) | DRG 571 ==
LOC: ED 16:39 → ED-I 19:25 → ED 19:53 → MS2 19:54
PROVIDERS: Family Medicine; Nurse Practitioner; ADMIT Internal Medicine; ATTEND Internal Medicine
PROC: 0JBP0ZZ Excision of Left Lower Leg Subcutaneous Tissue and Fascia, Open Approach (ICD-10-PCS; principal; 2020-02-17)
DX: L03.116 Cellulitis of left lower limb (principal); I13.0 Hypertensive heart and chronic kidney disease with heart failure and stage 1 through stage 4 chronic kidney disease, or unspecified chronic kidney disease; N17.9 Acute kidney failure, unspecified; L97.829 Non-pressure chronic ulcer of other part of left lower leg with unspecified severity; I50.32 Chronic diastolic (congestive) heart failure; L08.0 Pyoderma; E11.22 Type 2 diabetes mellitus with diabetic chronic kidney disease; E11.51 Type 2 diabetes mellitus with diabetic peripheral angiopathy without gangrene; N18.9 Chronic kidney disease, unspecified; I70.248 Atherosclerosis of native arteries of left leg with ulceration of other part of lower leg; D50.9 Iron deficiency anemia, unspecified; M06.9 Rheumatoid arthritis, unspecified; B95.62 Methicillin resistant Staphylococcus aureus infection as the cause of diseases classified elsewhere; Z98.84 Bariatric surgery status; Z79.01 Long term (current) use of anticoagulants; Z95.820 Peripheral vascular angioplasty status with implants and grafts; Z79.84 Long term (current) use of oral hypoglycemic drugs; Z20.828 Contact with and (suspected) exposure to other viral communicable diseases
CPT/HCPCS: J0131

== ENCOUNTER 2020-02-23 08:56 | Emergency (ER) | payer MEDICARE ==
[~2020-02-23] VITALS: Ht 147.3 cm; Wt 75.0 kg
[~2020-02-23 08:56] MED LIST changes: +AMOX/K CLAV875 M1 PO; +OXYCOD-APAP1 TA1 PO
[2020-02-23 10:03] LABS: HEMATOCRIT 34.9 % (37.0-47.0); HEMOGLOBIN 10.5 g/dl (12.0-16.0); IMMATURE GRANULOCYTES 0.4 % (0.0-5.0); MEAN CELL VOLUME 92.8 fL CALC (80.0-100.0); MEAN CORPUSCULAR HGB 27.9 pG CALC (26.0-32.0); MEAN CORPUSCULAR HGB CONC 30.1 g/dL CAL (32.0-36.0); NEUT# 4.71 thou/uL (2.00-7.15); RED BLOOD COUNT 3.76 mill/uL (4.20-5.60); RED CELL DISTRI WIDTH 18.5 % (11.5-15.5)
[2020-02-23 10:27] LABS: CREATININE 1.1 mg/dL (0.5-1.0)
[2020-02-23 10:35] LABS: ACT PARTIAL THROMBO TIME 26.8 SECONDS (20.0-32.5)
[2020-02-23 10:46] LABS: BILIRUBIN, TOTAL 0.4 mg/dL (0.0-1.4); POTASSIUM 5.6 mmol/l (3.5-5.1); TOTAL PROTEIN 5.7 g/dL (6.3-8.2)
[2020-02-23 10:55] VITALS: BP 168/80
== END 2020-02-23 10:55 | disposition home or self-care (01) ==
LOC: ED 08:56
PROVIDERS: Student in an Organized Health Care Education/Training Program
DX: Z46.89 Encounter for fitting and adjustment of other specified devices (principal); S80.12XA Contusion of left lower leg, initial encounter; T81.30XA Disruption of wound, unspecified, initial encounter; I11.0 Hypertensive heart disease with heart failure; I50.9 Heart failure, unspecified; E11.9 Type 2 diabetes mellitus without complications; X58.XXXA Exposure to other specified factors, initial encounter; Z98.84 Bariatric surgery status; Z79.84 Long term (current) use of oral hypoglycemic drugs
CPT/HCPCS: A6207; A6210

== ENCOUNTER 2021-04-06 08:23 | Day surgery (SDC) | payer MEDICARE ==
[~2021-04-06 08:23] MED LIST changes: +ACTEMRA162 MG/0.9 SC; +AMLODIPINE BESY10 MG PO; +HYDROCODONE BIT1 TA9 PO; +IPRATROPIU0.5 MG/3 M IN; +OLMESARTAN MEDO40 MG PO; +SINEQUAN25 MG PO; +VENTOLIN HFA IN
[2021-04-06] MEDS ORDERED: HYDROCODONE BIT1 TA9 PO (11:28)
[2021-04-06 12:10] VITALS: BP 128/63
[2021-04-06] MEDS ORDERED: HYDROCO/APAP1 TA9 PO (12:24)
[2021-04-07] MEDS ORDERED: DILAUDID2 MG PO (12:53)
[2021-04-17] MEDS ORDERED: PREVACID15 M2 PO (15:52)
== END 2021-04-06 12:55 | disposition home or self-care (01) ==
LOC: ORM 08:23
PROVIDERS: ATTEND Surgery
PROC: 0WUF4JZ Supplement Abdominal Wall with Synthetic Substitute, Percutaneous Endoscopic Approach (ICD-10-PCS; principal; 2021-04-06)
DX: K43.2 Incisional hernia without obstruction or gangrene (principal); I50.9 Heart failure, unspecified; Z95.820 Peripheral vascular angioplasty status with implants and grafts
CPT/HCPCS: J0131

== ENCOUNTER 2021-08-18 20:24 | Emergency (ER) | payer MEDICARE ==
[2021-08-18] VITALS (14 sets, daily range): BP systolic 172–221; BP diastolic 64–99
[~2021-08-18] VITALS: Ht 147.3 cm; Wt 67.0 kg
[~2021-08-18 20:24] MED LIST changes: +DILAUDID2 MG PO; +HYDROCO/APAP1 TA9 PO; +PREVACID15 M2 PO
[2021-08-18 21:10] LABS: HEMATOCRIT 35.7 % (37.0-47.0); HEMOGLOBIN 10.5 g/dl (12.0-16.0); IMMATURE GRANULOCYTES 0.1 % (0.0-5.0); MEAN CELL VOLUME 94.4 fL CALC (80.0-100.0); MEAN CORPUSCULAR HGB 27.8 pG CALC (26.0-32.0); MEAN CORPUSCULAR HGB CONC 29.4 g/dL CAL (32.0-36.0); NEUT# 5.47 thou/uL (2.00-7.15); RED BLOOD COUNT 3.78 mill/uL (4.20-5.60); RED CELL DISTRI WIDTH 16.8 % (11.5-15.5)
[2021-08-18 21:26] LABS: ALBUMIN 3.2 g/dL (3.2-5.0); ALKALINE PHOSPHATASE 95 u/l (38-126); AMYLASE 62 u/l (30-110); BUN 35 mg/dL (8-23); BUN/CREATININE RATIO 21 (12-20 (CALC)); CARBON DIOXIDE 22 mmol/l (22-30); CHLORIDE 111 mmol/l (95-108); CREATININE 1.7 mg/dL (0.5-1.0); GFR FOR AFR.AMER. 36 ML/MIN (>=60 (CALC)); GFR OTHER RACES 29 ML/MIN (>=60 (CALC)); LIPASE 128 u/l (23-300); SGOT/AST 19 u/l (9-36); SODIUM 136 mmol/l (137-146); TOTAL PROTEIN 5.9 g/dL (6.3-8.2)
[2021-08-18 21:28] LABS: ANION GAP 9 (6-22 (CALC)); D-DIMER 0.89 mg/L (0.19-0.60)
[2021-08-18 21:29] LABS: BILIRUBIN, TOTAL 0.1 mg/dL (0.0-1.4); POTASSIUM 5.9 mmol/l (3.5-5.1)
[2021-08-18 21:31] LABS: ACT PARTIAL THROMBO TIME 28.8 SECONDS (20.0-32.5); INTERNATIONAL NORMALIZED RATIO 1.1 RATIO (0.7-1.3)
[2021-08-18 21:38] LABS: MYOGLOBIN 94 ng/mL (0 - 62)
[2021-08-19 00:15] VITALS: BP 177/68
[2021-08-19] MEDS ORDERED: ONDANSETRON4 MG PO (00:19)
[2021-08-19 00:31] VITALS: BP 178/61
[2021-08-19 00:45] VITALS: BP 171/62
[2021-08-19 01:01] VITALS: BP 158/139
== END 2021-08-19 01:10 | disposition home or self-care (01) ==
LOC: ED 20:24
PROVIDERS: Family Medicine
DX: J45.901 Unspecified asthma with (acute) exacerbation (principal); R10.13 Epigastric pain; I13.0 Hypertensive heart and chronic kidney disease with heart failure and stage 1 through stage 4 chronic kidney disease, or unspecified chronic kidney disease; I50.9 Heart failure, unspecified; N18.9 Chronic kidney disease, unspecified; E87.5 Hyperkalemia; Z20.822 Contact with and (suspected) exposure to COVID-19
CPT/HCPCS: Q9967; S0164

== ENCOUNTER 2021-08-30 14:11 | Emergency (ER) | payer MEDICARE ==
[2021-08-30] VITALS (11 sets, daily range): BP systolic 173–221; BP diastolic 66–85
[~2021-08-30] VITALS: Ht 147.3 cm; Wt 61.2 kg
[~2021-08-30 14:11] MED LIST changes: +ONDANSETRON4 MG PO
[2021-08-30 16:34] LABS: HEMATOCRIT 40.3 % (37.0-47.0); IMMATURE GRANULOCYTES 0.3 % (0.0-5.0); MEAN CELL VOLUME 93.9 fL CALC (80.0-100.0); MEAN CORPUSCULAR HGB CONC 29.8 g/dL CAL (32.0-36.0); NEUT# 5.82 thou/uL (2.00-7.15); RED BLOOD COUNT 4.29 mill/uL (4.20-5.60); RED CELL DISTRI WIDTH 16.1 % (11.5-15.5)
[2021-08-30 16:50] LABS: ALBUMIN 3.2 g/dL (3.2-5.0); CREATININE 1.1 mg/dL (0.5-1.0); TOTAL PROTEIN 5.9 g/dL (6.3-8.2)
[2021-08-30 16:52] LABS: BILIRUBIN, TOTAL 0.5 mg/dL (0.0-1.4); POTASSIUM 5.5 mmol/l (3.5-5.1)
[2021-08-30 17:59] LABS: URINE BILIRUBIN - DIPSTICK NEGATIVE (NEGATIVE); URINE BLOOD DIPSTICK NEGATIVE (NEGATIVE); URINE COLOR YELLOW; URINE GLUCOSE - DIPSTICK NEGATIVE (NEGATIVE); URINE KETONE NEGATIVE (NEGATIVE); URINE LEUK ESTERASE NEGATIVE (NEGATIVE); URINE PROTEIN - DIPSTICK NEGATIVE (NEG-TRACE); URINE UROBILINOGEN - DIPSTICK 0.2 E.U./dL (0.2)
[2021-08-30 18:02] LABS: URINE NITRITE - DIPSTICK NEGATIVE (Negative)
[2021-08-30] MEDS ORDERED: FLEET ENEMA SIX PACK RE (18:51)
[2021-08-30] MEDS ORDERED: MIRALAX17 GM PO (18:51)
== END 2021-08-30 19:08 | disposition home or self-care (01) ==
LOC: ED 14:11
PROVIDERS: Nurse Practitioner
DX: K59.00 Constipation, unspecified (principal)

== ENCOUNTER 2021-10-21 14:24 | Inpatient (IN) | payer MEDICARE ==
[~2021-10-21] VITALS: Ht 147.3 cm; Wt 58.5 kg
[2021-10-21] VITALS (11 sets, daily range): BP systolic 134–197; BP diastolic 37–72
[~2021-10-21 14:24] MED LIST changes: +FLEET ENEMA SIX PACK RE; +MIRALAX17 GM PO
--- NOTE | 2021-10-21 14:29 | NUR ---
PT TO ROOM VIA WC
[2021-10-21 15:09] LABS: HEMATOCRIT 37.1 % (37.0-47.0); HEMOGLOBIN 11.2 g/dl (12.0-16.0); IMMATURE GRANULOCYTES 0.3 % (0.0-5.0); MEAN CORPUSCULAR HGB 28.1 pG CALC (26.0-32.0); MEAN CORPUSCULAR HGB CONC 30.2 g/dL CAL (32.0-36.0); NEUT# 3.12 thou/uL (2.00-7.15); RED BLOOD COUNT 3.99 mill/uL (4.20-5.60); RED CELL DISTRI WIDTH 14.7 % (11.5-15.5)
--- NOTE | 2021-10-21 15:25 | NUR ---
PATIENT RESTING ON STRETCHER, WAITING ON RESULTS
[2021-10-21 15:50] LABS: ALBUMIN 3.1 g/dL (3.2-5.0); ALKALINE PHOSPHATASE 108 u/l (38-126); BUN 32 mg/dL (8-23); BUN/CREATININE RATIO 23 (12-20 (CALC)); CARBON DIOXIDE 23 mmol/l (22-30); CHLORIDE 112 mmol/l (95-108); CREATININE 1.4 mg/dL (0.5-1.0); GFR FOR AFR.AMER. 44 ML/MIN (>=60 (CALC)); GFR OTHER RACES 37 ML/MIN (>=60 (CALC)); SGOT/AST 21 u/l (9-36); SODIUM 138 mmol/l (137-146); TOTAL PROTEIN 5.7 g/dL (6.3-8.2)
[2021-10-21 15:53] LABS: ANION GAP 8 (6-22 (CALC)); BILIRUBIN, TOTAL 0.2 mg/dL (0.0-1.4); POTASSIUM 5.3 mmol/l (3.5-5.1)
--- NOTE | 2021-10-21 16:00 | NUR ---
PATIENT AMBULATES TO AND FROM [facility].
[2021-10-21 16:21] LABS: URINE BILIRUBIN - DIPSTICK NEGATIVE (NEGATIVE); URINE BLOOD DIPSTICK NEGATIVE (NEGATIVE); URINE COLOR YELLOW; URINE GLUCOSE - DIPSTICK NEGATIVE (NEGATIVE); URINE KETONE NEGATIVE (NEGATIVE); URINE LEUK ESTERASE NEGATIVE (NEGATIVE); URINE NITRITE - DIPSTICK NEGATIVE (Negative); URINE PROTEIN - DIPSTICK NEGATIVE (NEG-TRACE); URINE UROBILINOGEN - DIPSTICK 0.2 E.U./dL (0.2)
[2021-10-21] MEDS ORDERED: SUCRALFATE1 GM PO (16:24)
[2021-10-21] MEDS ORDERED: CEPHALEXIN500 MG PO (16:26)
[2021-10-21] MEDS ORDERED: HYOSCYAMINE0.125 MG PO (16:27)
--- NOTE | 2021-10-21 16:30 | NUR ---
MED REC COMPLETED WITH PATIENT. UP DATED ON WAITING TIME, PENDING DR.PITA MCKINNEY
--- NOTE | 2021-10-21 16:36 | NUR ---
AT BEDSIDE TO DISCUSS RESULTS AND PLAN OF CARE
--- NOTE | 2021-10-21 17:40 | NUR ---
PATIENT MEDICATED PER MD ORDER, REPORTS ABD PAIN.
--- NOTE | 2021-10-21 18:30 | NUR ---
Admission Note Report Given to: NIC HATFIELD Transported by: Wheelchair X Stretcher Transported with: X Nurse Transporter X Patent IV O2 X Inseam Trimmer Location: ICU X MS2 PATIENT TO [facility] [address], BEDSIDE REPORT GIVEN. CARE RELINQUIHSHED.
--- NOTE | 2021-10-21 19:55 | NUR ---
PT RESTING IN BED WATCHING TV, NO SIGNS OF DISTRESS NOTED, RESP EVEN AND UNLABORED. PT ALERT AND ORIENTED X3, VOICES NO COMPLAINTS AT THIS TIME. DISCUSSED POC AND CONTACT PRECAUTIONS, DISCUSSED SWAB FOR HX OF MRSA, VERBALIZED UNDERSTANDING. R NARE SWABBED AND SENT TO LAB. PT MEDICATED PER MAR STATES NO BM IN LAST 5 DAYS, POOR APPETITE, ASSESSMENT COMPLETED, CALL LIGHT IN REACH,CONTINUE TO MONITOR.
--- NOTE | 2021-10-21 23:56 | NUR ---
VITALS OBTAINED, PT VOICES NO NEEDS OR COMPLAINTS AT THIS TIME. CALL LIGHT IN REACH,CONTINUE TO MONITOR.
[2021-10-22] VITALS (8 sets, daily range): BP systolic 132–156; BP diastolic 38–50
--- NOTE | 2021-10-22 04:09 | NUR ---
AM VITALS OBTAINED, PT VOICES NO NEEDS OR COMPLAINTS AT THIS TIME. CALL LIGHT IN REACH,CONTINUE TO MONITOR.
[2021-10-22 05:28] LABS: HEMOGLOBIN 10.7 g/dl (12.0-16.0); IMMATURE GRANULOCYTES 0.3 % (0.0-5.0); MEAN CELL VOLUME 92.3 fL CALC (80.0-100.0); MEAN CORPUSCULAR HGB 28.2 pG CALC (26.0-32.0); MEAN CORPUSCULAR HGB CONC 30.6 g/dL CAL (32.0-36.0); NEUT# 2.86 thou/uL (2.00-7.15); RED BLOOD COUNT 3.79 mill/uL (4.20-5.60); RED CELL DISTRI WIDTH 14.7 % (11.5-15.5)
[2021-10-22 06:13] LABS: ALBUMIN 2.6 g/dL (3.2-5.0); BILIRUBIN, TOTAL 0.2 mg/dL (0.0-1.4); CREATININE 1.3 mg/dL (0.5-1.0); MAGNESIUM 2.3 mg/dL (1.6-2.3); TOTAL PROTEIN 4.9 g/dL (6.3-8.2)
[2021-10-22 06:19] LABS: POTASSIUM 5.7 mmol/l (3.5-5.1)
--- NOTE | 2021-10-22 07:38 | NUR ---
SHIFT CHANGE REPORT, PT AWAKE ALERT AND ORIENTED RESTING IN BED, C/O OF CONGESTION AND REQUESTING TREATMENT, RESPIRATORY NOTIFIED AND WILL BE HERE TO ADDRESS CONCERN, NO OTHER COMPLAINS AT THIS TIME, CALL SCOTT IN REACH AND BED LOCKED IN LOWEST POSITION.
--- NOTE | 2021-10-22 12:00 | NUR ---
C/O GENERALISED PAIN, ISSUE ADDRESSED AND PAIN RELIEVED
[2021-10-22 12:37] LABS: CREATININE 1.2 mg/dL (0.5-1.0)
--- NOTE | 2021-10-22 16:00 | NUR ---
K. LEVEL MORE ELEVATED, WROTE ORDERS PROFILED, PRE-MED BLOOD GLUCOSE = 113 @ 1447, POST MED GLUCOSE @ 1620 = 55. OG WITH SUGAR, MOHINDER CRACKERS AND PEANUT BUTTER GIVEN, RECHECK B @ 1800 = 102.
[2021-10-22 18:01] LABS: CREATININE 1.1 mg/dL (0.5-1.0)
[2021-10-22 18:02] LABS: POTASSIUM 5.4 mmol/l (3.5-5.1)
--- NOTE | 2021-10-22 19:45 | NUR ---
PT RESTING IN BED, NO SIGNS OF DISTRESS NOTED, RESP EVEN AND UNLABORED. PT STATES SHE FEELS BETTER BUT HAD A ROUGH DAY. DISCUSSED POC, HYPERKALEMIA AND LABS IN AM, VERBALIZED UNDERSTANDING. PT STATES SHE HAD 2 BMS TODAY. SKIN INTACT, SLIGHT REDNESS NOTED TO LLE, ASSESSMENT COMPLETED, PT VOICES NO NEEDS OR COMPLAINTS AT THIS TIME. CALL LIGHT IN REACH,CONTINUE TO MONITOR.
[2021-10-23] VITALS (7 sets, daily range): BP systolic 133–156; BP diastolic 44–52
--- NOTE | 2021-10-23 | NUR ---
PT RESTING IN BED, VITALS OBTAINED, VOICES NO NEEDS OR COMPLAINTS AT THIS TIME. CALL LIGHT IN REACH,CONTINUE TO MONITOR.
--- NOTE | 2021-10-23 03:56 | NUR ---
PT RESTING IN BED WITH EYES CLOSED, NO SIGNS OF DISTRESS NOTED, RESP EVEN AND UNLABORED. CALL LIGHT IN REACH,CONTINUE TO MONITOR.
[2021-10-23 06:13] LABS: HEMATOCRIT 35.1 % (37.0-47.0); HEMOGLOBIN 10.8 g/dl (12.0-16.0); IMMATURE GRANULOCYTES 0.7 % (0.0-5.0); MEAN CELL VOLUME 91.4 fL CALC (80.0-100.0); MEAN CORPUSCULAR HGB 28.1 pG CALC (26.0-32.0); MEAN CORPUSCULAR HGB CONC 30.8 g/dL CAL (32.0-36.0); NEUT# 2.33 thou/uL (2.00-7.15); RED BLOOD COUNT 3.84 mill/uL (4.20-5.60); RED CELL DISTRI WIDTH 14.5 % (11.5-15.5)
--- NOTE | 2021-10-23 07:00 | NUR ---
RECEIVE RFEPORT FROM YEHUDA LUCERO.
[2021-10-23 07:04] LABS: CREATININE 1.3 mg/dL (0.5-1.0)
[2021-10-23 07:15] LABS: POTASSIUM 5.8 mmol/l (3.5-5.1)
--- NOTE | 2021-10-23 08:00 | NUR ---
PATIENT ALERT AND ORIENTED X3. VITAL SIGNS STABLE AT THIS TIME. PT RESTING PLEASURE IN THE ROOM CHAIR. PT IS EDUCATED ABOUD MEDICATIONS AND NURSING PLAN FOR TODAY. PT REFER UNDERSTAND. HEAD-TO TOE ASSESSMENT COMPLETE. FALL AND SAFERTY PRECAUTIONS IN PLACE. CALL LIGHT IS WITHIN REACH.
--- NOTE | 2021-10-23 09:32 | NUR ---
CALLED DR BENITEZ OFFICE AT [phone] SPOKE TO BAIRON GAVE INFORMATION ON PT AND STATED SHE WOULD LET HIM KNOW ABOUT THE CONSULATION.
[2021-10-23] MEDS ORDERED: PREDNISONE2.5 MG PO (11:02)
[2021-10-23] MEDS ORDERED: MONTELUKAST SOD10 MG PO (11:02)
--- NOTE | 2021-10-23 12:21 | NUR ---
PATIENT STABLE RESTING IN BED PLEASURE.
--- NOTE | 2021-10-23 16:00 | NUR ---
PATIENT RESTING IN BED. STABLE AT THIS TIME.
--- NOTE | 2021-10-23 20:00 | NUR ---
RECEIVED REPORT FROM NURSE CARY, ASSUMED PATIENT CARE, PATIENT ACCIDENTALLY PULLED IV LINE, CANULA INTACT, HOOKED ON TELEMETRY, LUNG SOUNDS CLEAR, PATIENT CONTACT ISOLATION FOR HX OF MRSA, ACTIVE BOWEL SOUND, DENIES CHEST DISCOMFORTS, CALL LIGHT AT REACH.
--- NOTE | 2021-10-23 23:39 | NUR ---
PATIENT RESTING IN BED WITH EYES CLOSED. EASY TO AROUSE-MEDICATED WITH COUMADIN 2.5MG PO As ordered. IVF PATENT AND INFUSINGT VIA RAC SITE AT 50CC/HR. SITE REMAINS HEALTHY. TELE MONITOR IN PLACE-O2 SAT IS 96% ON RA. BED ALARM IN PLACE FOR PATIENT SAFETY. CALL LIGHT IN REACH. WILL CONT TO MONITOR.
--- NOTE | 2021-10-24 | NUR ---
PATEINT RESTING IN BED, DENIES PAIN AT THIS TIME, REMAINS ON CONTACT ISOLATION FOR HX OF MRSA NOT IN DISTRESS CALL LIGHT AT REACH.
[2021-10-24 00:51] VITALS: BP 141/53
--- NOTE | 2021-10-24 04:25 | NUR ---
PATIENT RESTING IN BED, NO DISCOMFORTS NOTED AT THIS TIME, BREATHING UNLABORED, CALL LIGHT AT REACH.
[2021-10-24 04:36] VITALS: BP 128/47
--- NOTE | 2021-10-24 06:02 | NUR ---
PT WAS WEIGTHED IN BED DUE TO SCALE BEING , NURSE WAS NOTIFIED
--- NOTE | 2021-10-24 07:00 | NUR ---
report recieved from elastic yarn twistercement tester assistant pt restingin bed watching tv. breathing even and unlabored. no distress noted. fall/saftey precaution in place. call light within reach
[2021-10-24 07:03] VITALS: BP 143/53
[2021-10-24 07:29] LABS: ALBUMIN 2.5 g/dL (3.2-5.0); CREATININE 1.1 mg/dL (0.5-1.0)
[2021-10-24 07:56] LABS: POTASSIUM 5.4 mmol/l (3.5-5.1)
--- NOTE | 2021-10-24 08:30 | NUR ---
PT RESTING IN RECLINER UPON ENTERING ROOM. STATES GENERALIZED PAIN 8/10. TELE MONITOR IN PLACE. CONITNOUS MONITORING PER ED. IV: 22G LFA INFUSING IVF PER EMAR. PT REFUSED MEDICATION: SHANNON BRIGGS NOTIFIED/AWARE, EDUCATED PT ON HYPERKALEMIA. PT STILL REFUSED. ASSESSMENT ALLOWED. FALL/SAFTEY PRECAUTION IN PLACE. CALL LIGHT WITHIN REACH.
[2021-10-24 08:37] LABS: HEMATOCRIT 36.1 % (37.0-47.0); HEMOGLOBIN 11.1 g/dl (12.0-16.0); IMMATURE GRANULOCYTES 0.3 % (0.0-5.0); MEAN CELL VOLUME 91.2 fL CALC (80.0-100.0); MEAN CORPUSCULAR HGB CONC 30.7 g/dL CAL (32.0-36.0); NEUT# 2.77 thou/uL (2.00-7.15); RED BLOOD COUNT 3.96 mill/uL (4.20-5.60); RED CELL DISTRI WIDTH 14.7 % (11.5-15.5)
[2021-10-24 10:32] VITALS: BP 147/55
--- NOTE | 2021-10-24 12:30 | NUR ---
PT SITTING IN RECLINER EATING LUNCH. STATES NO PAIN. IV PATENT. BREATHING EVEN AND UNLABORED. FALL/SAFTEY PRECAUTION IN PLACE. CALL LIGHT WITHIN REACH.
[2021-10-24 15:15] LABS: CREATININE 1.1 mg/dL (0.5-1.0); POTASSIUM 5.2 mmol/l (3.5-5.1)
[2021-10-24 15:17] VITALS: BP 130/58
[2021-10-24] MEDS ORDERED: LASIX20 MG PO (15:43)
--- NOTE | 2021-10-24 17:38 | NUR ---
PT RESTING IN RECLINER ANXIOUS TO GO HOME. UPDATED POC. IVF INFUSING PER EMAR. STATES NO NEEDS AT THIS TIME. FALL/SAFTEY PRECAUTION IN PLACE. CALL LIGHT WITHIN REACH
--- NOTE | 2021-10-24 18:00 | NUR ---
PT REFUSED DRESSING AT THIS TIME. STATES AFTER DINNER. EDUCATED PT ON DRESSING CHANGE. PT REFUSES. FALL/SAFTEY PRECAUTION IN PLACE. CALL PORFIRIO QUEEN
--- NOTE | 2021-10-24 18:30 | NUR ---
Discharge instructions given. Patient verbalizes understanding of same. Discharged in stable condition via Wheelchair to with staff. All belongings sent with pt.
== END 2021-10-24 18:30 | disposition home or self-care (01) | DRG 641 ==
LOC: ED 14:24 → ED-I 16:07 → ED 16:42 → MS2 16:43
PROVIDERS: Family Medicine; Internal Medicine Nephrology; Nurse Practitioner; ADMIT Internal Medicine; ATTEND Internal Medicine
DX: E87.5 Hyperkalemia (principal); N17.9 Acute kidney failure, unspecified; I13.0 Hypertensive heart and chronic kidney disease with heart failure and stage 1 through stage 4 chronic kidney disease, or unspecified chronic kidney disease; I50.32 Chronic diastolic (congestive) heart failure; N25.81 Secondary hyperparathyroidism of renal origin; E11.22 Type 2 diabetes mellitus with diabetic chronic kidney disease; N18.30 Chronic kidney disease, stage 3 unspecified; D63.1 Anemia in chronic kidney disease; M06.9 Rheumatoid arthritis, unspecified; E11.51 Type 2 diabetes mellitus with diabetic peripheral angiopathy without gangrene; E86.9 Volume depletion, unspecified; E86.0 Dehydration; B34.9 Viral infection, unspecified; Z95.820 Peripheral vascular angioplasty status with implants and grafts; Z86.718 Personal history of other venous thrombosis and embolism; Z79.01 Long term (current) use of anticoagulants; Z20.822 Contact with and (suspected) exposure to COVID-19
CPT/HCPCS: J1756

== ENCOUNTER → 2021-12-15 | Emergency (ER) | payer MEDICARE ==
[~2021-12-15] MED LIST changes: +HYOSCYAMINE0.125 MG PO; +LASIX20 MG PO; +MONTELUKAST SOD10 MG PO; +SUCRALFATE1 GM PO
== END ==
LOC: ED 07:45
DX: S52.502A Unspecified fracture of the lower end of left radius, initial encounter for closed fracture (principal); S52.602A Unspecified fracture of lower end of left ulna, initial encounter for closed fracture; I11.0 Hypertensive heart disease with heart failure; I50.9 Heart failure, unspecified; W19.XXXA Unspecified fall, initial encounter; Z86.718 Personal history of other venous thrombosis and embolism

== ENCOUNTER 2023-09-21 15:46 | Emergency (ER) | payer MEDICARE ==
[~2023-09-21] VITALS: Ht 149.9 cm; Wt 54.4 kg
[2023-09-21] VITALS (14 sets, daily range): BP systolic 163–196; BP diastolic 61–77
[~2023-09-21 15:46] MED LIST changes: +PERCOCET 5/321 COMBO PO; +PLAVIX75 MG PO; +PROCARDIA XL30 MG PO
[2023-09-21] MEDS ORDERED: KETOROLAC TROMETHAMINE 30 MG/ML SDV IM ONE (18:20)
[2023-09-21] MEDS ORDERED: HYDROcodone 5 MG/Acetaminophen 325 MG/COMBO PO ONE (18:20)
[2023-09-21] MEDS ORDERED: DEXAMETHASONE SOD. PHOSPHATE 10 MG/ML VIAL IM ONE (18:20)
[2023-09-21] MEDS ORDERED: LORTAB 5/3255 MG PO (19:33)
== END 2023-09-21 20:00 | disposition home or self-care (01) ==
LOC: ED 15:46
DX: M06.9 Rheumatoid arthritis, unspecified (principal); I11.0 Hypertensive heart disease with heart failure; I50.9 Heart failure, unspecified; Z86.718 Personal history of other venous thrombosis and embolism; Z95.820 Peripheral vascular angioplasty status with implants and grafts

== ENCOUNTER 2023-10-17 17:22 | Emergency (ER) | payer MEDICARE ==
[2023-10-17] VITALS (15 sets, daily range): BP systolic 135–195; BP diastolic 58–112
[~2023-10-17] VITALS: Ht 147.3 cm; Wt 55.3 kg
[2023-10-17] MEDS ORDERED: HYDROmorphone HCL 2 MG/AMP IM ONE (18:05)
[2023-10-17] MEDS ORDERED: DEXAMETHASONE SOD. PHOSPHATE 10 MG/ML VIAL IM ONE (18:05)
[2023-10-17] MEDS ORDERED: METHOCARBAMOL 500 MG/TAB PO ONE (18:05)
[2023-10-17] MEDS ORDERED: PERCOCET 5/321 COMBO PO (21:48)
== END 2023-10-17 22:00 | disposition home or self-care (01) ==
LOC: ED 17:22
DX: M54.31 Sciatica, right side (principal); M47.26 Other spondylosis with radiculopathy, lumbar region; I11.0 Hypertensive heart disease with heart failure; I50.9 Heart failure, unspecified; Z86.718 Personal history of other venous thrombosis and embolism; Z95.820 Peripheral vascular angioplasty status with implants and grafts

== ENCOUNTER 2023-12-09 08:05 | Emergency (ER) | payer MEDICARE ==
[~2023-12-09] VITALS: Ht 147.3 cm; Wt 56.6 kg
[2023-12-09] VITALS (9 sets, daily range): BP systolic 172–187; BP diastolic 62–81
[2023-12-09] MEDS ORDERED: LORTAB5 PO (08:32)
[2023-12-09 08:54] LABS: PROTHROMBIN TIME 9.7 SECONDS (9.0-12.5)
[2023-12-09 08:58] LABS: ALBUMIN 3.6 g/dL (3.2-5.0); BILIRUBIN, TOTAL 0.3 mg/dL (0.02-1.3); CREATININE 1.2 mg/dL (0.5-1.0); TOTAL PROTEIN 6.5 g/dL (6.3-8.2)
[2023-12-09 09:08] LABS: POTASSIUM 4.3 mmol/l (3.5-5.1)
[2023-12-09 09:17] LABS: BASO% 0.5 % (0-3); EOS% 1.2 % (0-8); HEMATOCRIT 39.1 % (37.0-47.0); IMMATURE GRANULOCYTES 0.2 % (0.0-5.0); MEAN CELL VOLUME 97.5 fL CALC (80.0-100.0); MEAN CORPUSCULAR HGB 29.9 pG CALC (26.0-32.0); MEAN CORPUSCULAR HGB CONC 30.7 g/dL CAL (32.0-36.0); MONO% 10.1 % (2-13); NEUT# 4.06 thou/uL (2.00-7.15); RED BLOOD COUNT 4.01 mill/uL (4.20-5.60); RED CELL DISTRI WIDTH 14.7 % (11.5-15.5)
[2023-12-09 10:48] LABS: URINE BILIRUBIN - DIPSTICK Negative (NEGATIVE); URINE BLOOD DIPSTICK Negative (NEGATIVE); URINE COLOR Yellow; URINE GLUCOSE - DIPSTICK Negative (NEGATIVE); URINE KETONE Negative (NEGATIVE); URINE LEUK ESTERASE Negative (NEGATIVE); URINE NITRITE - DIPSTICK Negative (Negative); URINE PH 5.5 (4.5-8.0); URINE PROTEIN - DIPSTICK Negative (NEG-TRACE); URINE UROBILINOGEN - DIPSTICK 0.2 E.U./dL (0.2)
[2023-12-09] MEDS ORDERED: HYDROcodone 5 MG/Acetaminophen 325 MG/COMBO PO ONE (11:55)
== END 2023-12-09 12:10 | disposition home or self-care (01) ==
LOC: ED 08:05
PROVIDERS: Family Medicine
DX: M25.551 Pain in right hip (principal); J45.909 Unspecified asthma, uncomplicated; I11.0 Hypertensive heart disease with heart failure; I50.9 Heart failure, unspecified; Z86.718 Personal history of other venous thrombosis and embolism; Z95.820 Peripheral vascular angioplasty status with implants and grafts; R06.02 Shortness of breath

== ENCOUNTER 2023-12-20 07:38 | Emergency (ER) | payer MEDICARE ==
[~2023-12-20] VITALS: Ht 147.3 cm; Wt 56.0 kg
[2023-12-20] VITALS (7 sets, daily range): BP systolic 161–204; BP diastolic 58–76
[~2023-12-20 07:38] MED LIST changes: +LORTAB5 PO
[2023-12-20] MEDS ORDERED: LASIX 80 MG TAB80 MG PO (08:15)
[2023-12-20] MEDS ORDERED: KLONOPIN1 MG PO (08:18)
== END 2023-12-20 09:06 | disposition home or self-care (01) ==
LOC: ED 07:38
DX: S51.012A Laceration without foreign body of left elbow, initial encounter (principal); M25.512 Pain in left shoulder; M25.552 Pain in left hip; I11.0 Hypertensive heart disease with heart failure; I50.9 Heart failure, unspecified; G62.9 Polyneuropathy, unspecified; M25.551 Pain in right hip; G89.29 Other chronic pain; W06.XXXA Fall from bed, initial encounter; Z86.718 Personal history of other venous thrombosis and embolism

== ENCOUNTER 2024-03-14 08:23 | Emergency (ER) | payer MEDICARE ==
[~2024-03-14] VITALS: Ht 147.3 cm; Wt 57.0 kg
[~2024-03-14 08:23] MED LIST changes: +KLONOPIN1 MG PO; +LASIX 80 MG TAB80 MG PO
[2024-03-14] MEDS ORDERED: MORPHINE SULFATE 4 MG/ML VIAL IV ONE (08:50)
[2024-03-14] MEDS ORDERED: ONDANSETRON HCl 4 MG/2 ML SDV IV ONE (08:50)
[2024-03-14 09:20] LABS: EOS% 0.2 % (0-8); HEMATOCRIT 35.8 % (37.0-47.0); HEMOGLOBIN 10.9 g/dl (12.0-16.0); IMMATURE GRANULOCYTES 0.4 % (0.0-5.0); LYMPH% 12.6 % (15-41); MEAN CORPUSCULAR HGB 28.9 pG CALC (26.0-32.0); MEAN CORPUSCULAR HGB CONC 30.4 g/dL CAL (32.0-36.0); MONO% 8.3 % (2-13); NEUT# 7.38 thou/uL (2.00-7.15); NEUT% 78.5 % (42-76); RED BLOOD COUNT 3.77 mill/uL (4.20-5.60); RED CELL DISTRI WIDTH 15.2 % (11.5-15.5)
[2024-03-14 09:39] LABS: ALBUMIN 3.6 g/dL (3.2-5.0); ALKALINE PHOSPHATASE 86 u/l (38-126); CARBON DIOXIDE 16 mmol/l (22-30); CHLORIDE 114 mmol/l (95-108); ESTIMATED GFR 25 ML/MIN (>=90 (CALC)); SGOT/AST 32 u/l (9-36); SODIUM 138 mmol/l (137-146); TOTAL PROTEIN 6.3 g/dL (6.3-8.2)
[2024-03-14 09:50] LABS: ANION GAP 14 (6-22 (CALC)); BILIRUBIN, TOTAL 0.5 mg/dL (0.02-1.3); BUN 49 mg/dL (8-23); BUN/CREATININE RATIO 25 (12-20 (CALC)); POTASSIUM 5.6 mmol/l (3.5-5.1)
[2024-03-14] MEDS ORDERED: ELIQUIS5 MG PO (11:59)
[2024-03-14] MEDS ORDERED: APIXABAN BASE 5 MG TAB PO ONE (12:00)
[2024-03-14] MEDS ORDERED: KIONEX PO (12:02)
[2024-03-14 12:37] VITALS: BP 180/70
== END 2024-03-14 12:13 | disposition home or self-care (01) ==
LOC: ED 08:23
PROVIDERS: Family Medicine
DX: I82.412 Acute embolism and thrombosis of left femoral vein (principal); I13.0 Hypertensive heart and chronic kidney disease with heart failure and stage 1 through stage 4 chronic kidney disease, or unspecified chronic kidney disease; I50.9 Heart failure, unspecified; E11.22 Type 2 diabetes mellitus with diabetic chronic kidney disease; N18.9 Chronic kidney disease, unspecified; E11.51 Type 2 diabetes mellitus with diabetic peripheral angiopathy without gangrene; E87.5 Hyperkalemia; Z86.718 Personal history of other venous thrombosis and embolism; Z20.822 Contact with and (suspected) exposure to COVID-19
CPT/HCPCS: J2405

== ENCOUNTER 2024-03-30 13:48 | Emergency (ER) | payer MEDICARE ==
[~2024-03-30] VITALS: Ht 147.3 cm; Wt 53.5 kg
[~2024-03-30 13:48] MED LIST changes: +ELIQUIS5 MG PO; +KIONEX PO
[2024-03-30 16:07] LABS: BASO% 0.1 % (0-3); EOS% 0.5 % (0-8); HEMATOCRIT 33.5 % (37.0-47.0); HEMOGLOBIN 9.9 g/dl (12.0-16.0); IMMATURE GRANULOCYTES 0.2 % (0.0-5.0); LYMPH% 13.5 % (15-41); MEAN CELL VOLUME 99.4 fL CALC (80.0-100.0); MEAN CORPUSCULAR HGB 29.4 pG CALC (26.0-32.0); MEAN CORPUSCULAR HGB CONC 29.6 g/dL CAL (32.0-36.0); MONO% 6.1 % (2-13); NEUT# 7.47 thou/uL (2.00-7.15); NEUT% 79.6 % (42-76); RED BLOOD COUNT 3.37 mill/uL (4.20-5.60); RED CELL DISTRI WIDTH 17.3 % (11.5-15.5)
[2024-03-30 16:22] LABS: ALBUMIN 3.6 g/dL (3.2-5.0); BILIRUBIN, TOTAL 0.4 mg/dL (0.02-1.3); CREATININE 1.8 mg/dL (0.5-1.0); TOTAL PROTEIN 6.3 g/dL (6.3-8.2)
[2024-03-30 16:25] LABS: POTASSIUM 5.6 mmol/l (3.5-5.1)
[2024-03-30] MEDS ORDERED: MORPHINE SULFATE 4 MG/ML VIAL IV ONE ×2 (16:30→19:35)
[2024-03-30] MEDS ORDERED: ONDANSETRON HCl 4 MG/2 ML SDV IV ONE (16:30)
[2024-03-30] MEDS ORDERED: VANCOMYCIN HCL 1 GM in SODIUM CHLORIDE 0.9% 500 ML IV ONE (17:20)
[2024-03-30 17:30] VITALS: BP 164/71
[2024-03-30 17:45] VITALS: BP 172/71
[2024-03-30] MEDS ORDERED: Heparin SODIUM (Porcine) 500 ML IV ONE (18:10)
[2024-03-30 18:53] VITALS: BP 198/154
[2024-03-30 19:02] VITALS: BP 146/104
[2024-03-30] MEDS ORDERED: Heparin SODIUM (Porcine) 5,000 UNITS/ML SDV IV ONE (19:55)
[2024-03-30 20:05] LABS: ACT PARTIAL THROMBO TIME 26.3 SECONDS (20.0-32.5)
[2024-03-30 22:40] VITALS: BP 146/91
== END 2024-03-30 22:40 ==
LOC: ED 13:48
PROVIDERS: Family Medicine; Nurse Practitioner
PROC: 02HV33Z Insertion of Infusion Device into Superior Vena Cava, Percutaneous Approach (ICD-10-PCS; principal; 2024-03-30)
DX: I73.9 Peripheral vascular disease, unspecified (principal); I11.0 Hypertensive heart disease with heart failure; I50.9 Heart failure, unspecified; Z86.718 Personal history of other venous thrombosis and embolism; Z79.01 Long term (current) use of anticoagulants; Z95.820 Peripheral vascular angioplasty status with implants and grafts
CPT/HCPCS: J0696; J1644; J2405; J3370

== ENCOUNTER 2024-05-21 15:47 | Inpatient (IN) | payer MEDICARE ==
[~2024-05-21] VITALS: Ht 147.3 cm; Wt 50.4 kg
[2024-05-21] VITALS (28 sets, daily range): BP systolic 129–199; BP diastolic 58–102
[2024-05-21] MEDS ORDERED: FUROSEMIDE 40 MG/4 ML SDV IV ONE (16:15)
[2024-05-21 16:21] LABS: EOS% 0.2 % (0-8); HEMATOCRIT 31.6 % (37.0-47.0); HEMOGLOBIN 9.2 g/dl (12.0-16.0); IMMATURE GRANULOCYTES 0.8 % (0.0-5.0); LYMPH% 6.5 % (15-41); MEAN CELL VOLUME 99.7 fL CALC (80.0-100.0); MEAN CORPUSCULAR HGB CONC 29.1 g/dL CAL (32.0-36.0); MONO% 5.5 % (2-13); NEUT# 18.74 thou/uL (2.00-7.15); RED BLOOD COUNT 3.17 mill/uL (4.20-5.60); RED CELL DISTRI WIDTH 17.6 % (11.5-15.5)
[2024-05-21 16:39] LABS: PROTHROMBIN TIME 10.9 SECONDS (9.0-12.5)
[2024-05-21] MEDS ORDERED: cefTRIAXone SODIUM 2 GM in SODIUM CHLORIDE 0.9% 100 ML IV ONE (16:50)
[2024-05-21 17:13] LABS: URINE BILIRUBIN - DIPSTICK Negative (NEGATIVE); URINE BLOOD DIPSTICK Negative (NEGATIVE); URINE GLUCOSE - DIPSTICK Negative (NEGATIVE); URINE KETONE Negative (NEGATIVE); URINE LEUK ESTERASE Negative (NEGATIVE); URINE NITRITE - DIPSTICK Negative (Negative); URINE PROTEIN - DIPSTICK Negative (NEG-TRACE); URINE UROBILINOGEN - DIPSTICK 0.2 E.U./dL (0.2)
[2024-05-21 17:14] LABS: URINE COLOR Yellow
[2024-05-21 17:24] LABS: ALBUMIN 3.3 g/dL (3.2-5.0); ALKALINE PHOSPHATASE 125 u/l (38-126); ANION GAP 14 (6-22 (CALC)); BILIRUBIN, TOTAL 0.4 mg/dL (0.02-1.3); BUN 29 mg/dL (8-23); BUN/CREATININE RATIO 23 (12-20 (CALC)); CARBON DIOXIDE 16 mmol/l (22-30); CHLORIDE 117 mmol/l (95-108); CREATININE 1.3 mg/dL (0.5-1.0); ESTIMATED GFR 43 ML/MIN (>=90 (CALC)); SGOT/AST 21 u/l (9-36); SODIUM 140 mmol/l (137-146); TOTAL PROTEIN 6.1 g/dL (6.3-8.2)
[2024-05-21 17:29] LABS: POTASSIUM 6.9 mmol/l (3.5-5.1)
[2024-05-21] MEDS ORDERED: MORPHINE SULFATE 4 MG/ML VIAL IV ONE (17:55)
[2024-05-21] MEDS ORDERED: CALCIUM GLUCONATE 1 GM in SODIUM CHLORIDE 0.9% 50 ML IV ONE ×2 (18:05→19:05)
[2024-05-21] MEDS ORDERED: DEXTROSE 50% 50 ML/SYR IV ONE ×2 (18:05→22:00)
[2024-05-21] MEDS ORDERED: INSULIN REGULAR (HUMAN) 100 UNIT/ML INJ IV ONE (18:05)
[2024-05-21] MEDS ORDERED: SODIUM POLYSTYRENE SULFONATE 15 G/BTL POWDER PO ONE (18:05)
[2024-05-21] MEDS ORDERED: DEXTROSE 250 ML IV ONE (18:45)
[2024-05-21] MEDS ORDERED: ALBUTEROL SULFATE 2.5 MG VIAL IN ONE (19:00)
[2024-05-21] MEDS ORDERED: DOXYCYCLINE HYCLATE 100 MG in SODIUM CHLORIDE 0.9% 100 ML IV ONE (20:55)
[2024-05-21 21:36] LABS: CREATININE 1.3 mg/dL (0.5-1.0)
[2024-05-21 21:52] LABS: POTASSIUM 5.7 mmol/l (3.5-5.1)
[2024-05-21] MEDS ORDERED: IPRATROPIUM-Albuterol 0.5MG-2.5MG/3 ML NEB ONE (22:15)
[2024-05-21] MEDS ORDERED: SODIUM CHLORIDE 0.9% 1,000 ML IV PRN (22:30)
[2024-05-21] MEDS ORDERED: ACETAMINOPHEN 325 MG/TAB PO PRN (22:30)
[2024-05-21] MEDS ORDERED: MAGNESIUM HYDROXIDE 30 ML UDC PO PRN (22:30)
[2024-05-22] VITALS (7 sets, daily range): BP systolic 136–173; BP diastolic 51–67
[2024-05-22] MEDS ORDERED: CLARIFY DOSE SC PRN (05:35)
[2024-05-22] MEDS ORDERED: IPRATROPIUM-Albuterol 0.5MG-2.5MG/3 ML NEB PRN (10:00)
[2024-05-22] MEDS ORDERED: HYDROcodone 5 MG/Acetaminophen 325 MG/COMBO PO PRN (10:00)
[2024-05-22] MEDS ORDERED: DIOVAN320 MG PO (10:03)
[2024-05-22] MEDS ORDERED: CARVEDILOL 25 MG/TAB PO SCH (10:30)
[2024-05-22] MEDS ORDERED: LOSARTAN Potassium 50 MG/TAB PO SCH (10:30)
[2024-05-22] MEDS ORDERED: methylPREDNISolone Sod Succ 40 MG/ML SDV IV SCH (10:30)
[2024-05-22] MEDS ORDERED: APIXABAN BASE 5 MG TAB PO SCH (10:30)
[2024-05-22] MEDS ORDERED: SODIUM CHLORIDE IV SCH (11:00)
[2024-05-22] MEDS ORDERED: AZITHROMYCIN 500 MG in SODIUM CHLORIDE 0.9% 250 ML IV SCH (11:00)
[2024-05-22] MEDS ORDERED: SODIUM BICARBONATE IV SCH (11:00)
[2024-05-22] MEDS ORDERED: NIFEdipine SR 30 MG/TAB PO SCH (11:30)
[2024-05-22 13:42] LABS: EOS% 0.1 % (0-8); HEMATOCRIT 26.2 % (37.0-47.0); HEMOGLOBIN 7.6 g/dl (12.0-16.0); IMMATURE GRANULOCYTES 0.8 % (0.0-5.0); LYMPH% 2.2 % (15-41); MEAN CELL VOLUME 98.1 fL CALC (80.0-100.0); MEAN CORPUSCULAR HGB 28.5 pG CALC (26.0-32.0); MONO% 1.8 % (2-13); NEUT# 15.07 thou/uL (2.00-7.15); NEUT% 95.1 % (42-76); RED BLOOD COUNT 2.67 mill/uL (4.20-5.60); RED CELL DISTRI WIDTH 17.1 % (11.5-15.5)
[2024-05-22] MEDS ORDERED: FUROSEMIDE 40 MG/4 ML SDV IV SCH (14:00)
[2024-05-22 14:01] LABS: BILIRUBIN, TOTAL 0.4 mg/dL (0.02-1.3); CREATININE 1.1 mg/dL (0.5-1.0); MAGNESIUM 1.9 mg/dL (1.6-2.3)
[2024-05-22 14:03] LABS: ALBUMIN 2.5 g/dL (3.2-5.0); POTASSIUM 5.8 mmol/l (3.5-5.1)
[2024-05-22] MEDS ORDERED: ENOXAPARIN SODIUM 30 MG/0.3 ML INJ SC SCH (21:00)
[2024-05-23] VITALS (7 sets, daily range): BP systolic 117–152; BP diastolic 56–72
[2024-05-23 05:17] LABS: ALBUMIN 2.5 g/dL (3.2-5.0); BILIRUBIN, TOTAL 0.3 mg/dL (0.02-1.3); CREATININE 0.9 mg/dL (0.5-1.0); HEMATOCRIT 24.3 % (37.0-47.0); HEMOGLOBIN 7.3 g/dl (12.0-16.0); IMMATURE GRANULOCYTES 0.9 % (0.0-5.0); LYMPH% 3.6 % (15-41); MAGNESIUM 1.7 mg/dL (1.6-2.3); MEAN CELL VOLUME 97.6 fL CALC (80.0-100.0); MEAN CORPUSCULAR HGB 29.3 pG CALC (26.0-32.0); MONO% 1.3 % (2-13); NEUT# 7.05 thou/uL (2.00-7.15); NEUT% 94.2 % (42-76); RED BLOOD COUNT 2.49 mill/uL (4.20-5.60); RED CELL DISTRI WIDTH 16.9 % (11.5-15.5); TOTAL PROTEIN 4.9 g/dL (6.3-8.2)
[2024-05-23] MEDS ORDERED: SODIUM CHLORIDE 0.9% 1,000 ML IV SCH (09:45)
[2024-05-24] VITALS (11 sets, daily range): BP systolic 130–438; BP diastolic 55–74
[2024-05-24 05:12] LABS: BASO% 0.1 % (0-3); HEMATOCRIT 23.2 % (37.0-47.0); HEMOGLOBIN 7.2 g/dl (12.0-16.0); IMMATURE GRANULOCYTES 0.5 % (0.0-5.0); LYMPH% 4.2 % (15-41); MEAN CELL VOLUME 96.3 fL CALC (80.0-100.0); MEAN CORPUSCULAR HGB 29.9 pG CALC (26.0-32.0); MONO% 2.3 % (2-13); NEUT# 10.68 thou/uL (2.00-7.15); NEUT% 92.9 % (42-76); RED BLOOD COUNT 2.41 mill/uL (4.20-5.60); RED CELL DISTRI WIDTH 16.6 % (11.5-15.5)
[2024-05-24 05:23] LABS: ALBUMIN 2.5 g/dL (3.2-5.0); BILIRUBIN, TOTAL 0.3 mg/dL (0.02-1.3); CREATININE 1.1 mg/dL (0.5-1.0); MAGNESIUM 1.7 mg/dL (1.6-2.3); POTASSIUM 3.7 mmol/l (3.5-5.1); TOTAL PROTEIN 4.9 g/dL (6.3-8.2)
[2024-05-24] MEDS ORDERED: hydrALAZINE HCL 20 MG/ML VIAL(1 ML) IV PRN (10:15)
[2024-05-24] MEDS ORDERED: CEFEPIME HYDROCHLORIDE 2 GM in SODIUM CHLORIDE 0.9% 100 ML IV SCH (11:00)
[2024-05-25] VITALS (18 sets, daily range): BP systolic 121–180; BP diastolic 48–74
[2024-05-25 05:17] LABS: BASO% 0.1 % (0-3); HEMATOCRIT 25.2 % (37.0-47.0); HEMOGLOBIN 7.5 g/dl (12.0-16.0); IMMATURE GRANULOCYTES 0.6 % (0.0-5.0); LYMPH% 7.1 % (15-41); MEAN CELL VOLUME 95.1 fL CALC (80.0-100.0); MEAN CORPUSCULAR HGB 28.3 pG CALC (26.0-32.0); MEAN CORPUSCULAR HGB CONC 29.8 g/dL CAL (32.0-36.0); MONO% 7.7 % (2-13); NEUT# 9.6 thou/uL (2.00-7.15); NEUT% 84.5 % (42-76); RED BLOOD COUNT 2.65 mill/uL (4.20-5.60); RED CELL DISTRI WIDTH 16.4 % (11.5-15.5)
[2024-05-25 05:25] LABS: ALBUMIN 2.5 g/dL (3.2-5.0); BILIRUBIN, TOTAL 0.4 mg/dL (0.02-1.3); CREATININE 0.9 mg/dL (0.5-1.0); MAGNESIUM 1.8 mg/dL (1.6-2.3); TOTAL PROTEIN 5.1 g/dL (6.3-8.2)
[2024-05-25] MEDS ORDERED: SODIUM CHLORIDE 0.9% 500 ML IV ONE (10:45)
[2024-05-25] MEDS ORDERED: FUROSEMIDE 40 MG/4 ML SDV IV SCH (11:30)
[2024-05-25] MEDS ORDERED: MUPIROCIN (PSEUDOMONAS FLUORES 22 GM/TUBE TUBE EX SCH (12:00)
[2024-05-26] VITALS (8 sets, daily range): BP systolic 146–175; BP diastolic 52–78
[2024-05-26 05:58] LABS: BASO% 0.1 % (0-3); IMMATURE GRANULOCYTES 1.1 % (0.0-5.0); LYMPH% 4.6 % (15-41); MEAN CORPUSCULAR HGB 27.8 pG CALC (26.0-32.0); MEAN CORPUSCULAR HGB CONC 31.8 g/dL CAL (32.0-36.0); MONO% 4.4 % (2-13); NEUT# 7.47 thou/uL (2.00-7.15); NEUT% 89.8 % (42-76); RED BLOOD COUNT 4.35 mill/uL (4.20-5.60); RED CELL DISTRI WIDTH 18.2 % (11.5-15.5)
[2024-05-26 06:03] LABS: HEMATOCRIT 38.1 % (37.0-47.0); HEMOGLOBIN 12.1 g/dl (12.0-16.0); MEAN CELL VOLUME 87.6 fL CALC (80.0-100.0)
[2024-05-26 06:11] LABS: ALBUMIN 2.9 g/dL (3.2-5.0); CREATININE 0.8 mg/dL (0.5-1.0); MAGNESIUM 1.8 mg/dL (1.6-2.3); POTASSIUM 4.4 mmol/l (3.5-5.1); TOTAL PROTEIN 5.4 g/dL (6.3-8.2)
[2024-05-26 06:19] LABS: BILIRUBIN, TOTAL 0.7 mg/dL (0.02-1.3)
[2024-05-26] MEDS ORDERED: Meropenem 1 GM in SODIUM CHLORIDE 0.9% 100 ML IV SCH (08:00)
[2024-05-27 00:28] VITALS: BP 167/52
[2024-05-27 02:39] VITALS: BP 165/61
[2024-05-27 04:14] VITALS: BP 165/51; BP 168/68
[2024-05-27 05:39] LABS: BASO% 0.1 % (0-3); HEMOGLOBIN 12.1 g/dl (12.0-16.0); IMMATURE GRANULOCYTES 0.8 % (0.0-5.0); MEAN CELL VOLUME 87.2 fL CALC (80.0-100.0); MEAN CORPUSCULAR HGB 27.8 pG CALC (26.0-32.0); MEAN CORPUSCULAR HGB CONC 31.8 g/dL CAL (32.0-36.0); MONO% 4.9 % (2-13); NEUT# 8.69 thou/uL (2.00-7.15); NEUT% 90.2 % (42-76); RED BLOOD COUNT 4.36 mill/uL (4.20-5.60); RED CELL DISTRI WIDTH 17.4 % (11.5-15.5)
[2024-05-27 05:44] VITALS: BP 179/68
[2024-05-27 05:57] LABS: ALBUMIN 2.7 g/dL (3.2-5.0); BILIRUBIN, TOTAL 0.5 mg/dL (0.02-1.3); MAGNESIUM 1.9 mg/dL (1.6-2.3); POTASSIUM 3.9 mmol/l (3.5-5.1)
[2024-05-27 09:53] VITALS: BP 149/68
[2024-05-27] MEDS ORDERED: ERTAPENEM1 G1 IV (10:25)
[2024-05-27] MEDS ORDERED: PREDNISONE10 MG PO (10:27)
[2024-05-27] MEDS ORDERED: ERTAPENEM 1 GM in SODIUM CHLORIDE 0.9% 50 ML IV SCH (11:00)
== END 2024-05-27 11:52 | DRG 177 ==
LOC: ED 15:47 → ED-I 22:06 → ED 22:31 → MS2 22:32
PROVIDERS: Emergency Medicine; Internal Medicine; Nurse Practitioner Family; ADMIT Internal Medicine; ATTEND Internal Medicine
PROC: 0T9B70Z Drainage of Bladder with Drainage Device, Via Natural or Artificial Opening (ICD-10-PCS; principal; 2024-05-21)
PROC: 30233N1 Transfusion of Nonautologous Red Blood Cells into Peripheral Vein, Percutaneous Approach (ICD-10-PCS; 2024-05-25)
PROC: 30233N1 Transfusion of Nonautologous Red Blood Cells into Peripheral Vein, Percutaneous Approach (ICD-10-PCS; 2024-05-25)
DX: J15.0 Pneumonia due to Klebsiella pneumoniae (principal); J96.01 Acute respiratory failure with hypoxia; E87.20 Acidosis, unspecified; I13.0 Hypertensive heart and chronic kidney disease with heart failure and stage 1 through stage 4 chronic kidney disease, or unspecified chronic kidney disease; I50.32 Chronic diastolic (congestive) heart failure; N17.9 Acute kidney failure, unspecified; J45.901 Unspecified asthma with (acute) exacerbation; Z16.12 Extended spectrum beta lactamase (ESBL) resistance; E87.5 Hyperkalemia; D63.1 Anemia in chronic kidney disease; E11.22 Type 2 diabetes mellitus with diabetic chronic kidney disease; N18.9 Chronic kidney disease, unspecified; E11.51 Type 2 diabetes mellitus with diabetic peripheral angiopathy without gangrene; M06.9 Rheumatoid arthritis, unspecified; I25.10 Atherosclerotic heart disease of native coronary artery without angina pectoris; Z79.01 Long term (current) use of anticoagulants; Z86.718 Personal history of other venous thrombosis and embolism; Z95.820 Peripheral vascular angioplasty status with implants and grafts; Z98.84 Bariatric surgery status; Z22.322 Carrier or suspected carrier of Methicillin resistant Staphylococcus aureus
CPT/HCPCS: J0360; J0456; J0612; J0692; J0696; J1335; J1940; J2020; P9016